=== PATIENT | male | born 1965 | race Caucasian/White ===

== ENCOUNTER 2020-02-26 11:16 | Outpatient (CLI) | payer MEDICARE, SELFPAY ==
[2020-02-26 12:17] LABS: Hemoglobin A1C 7.9 % (<5.7)
[2020-02-26 12:24] LABS: Cholesterol 185 mg/dL (0-200); HDL Direct 27 mg/dL; Triglycerides 217 mg/dL (<150)
[2020-02-26 12:35] LABS: LDL Cholesterol Direct 124 mg/dL
== END 2020-02-26 11:17 | disposition home or self-care (01) ==
LOC: ANHLAB 11:19
PROVIDERS: PCP Internal Medicine; Visit Provider Clinical Nurse Specialist
DX: E11.9 Type 2 diabetes mellitus without complications (principal); E78.5 Hyperlipidemia, unspecified
CPT/HCPCS: 36415; 80061; 83036

== ENCOUNTER 2020-09-18 13:24 | Emergency (ER) | payer MEDICARE, SELFPAY ==
--- NOTE | ~2020-09-18 | CT_ITS ---
EXAMINATION: CT lumbar spine wo con DATE: 09/18/2020 17:15 INDICATION: Low back pain. TECHNIQUE: Computed tomography (CT) of the lumbar spine was performed without intravenous contrast. A utomated exposure control and iterative reconstruction technique were employed. The dose-length produ ct was 1256.95 mGy-cm. COMPARISON: Lumbar spine radiographs 06/23/2014 FINDINGS: There are gallstones in the gallbladder, which is partially visualized. There is 5 degrees levocurvature of cervical spine. There are Schmorl's nodes at all levels. There are benign bone islan ds in right ilium. There is mildly decreased disc height at L3-L4. The following disc levels are spec ifically discussed: L1-L2: The disc is bulging. There is mild bilateral facet joint osteoarthritis. There is no neural fo raminal stenosis. There is mild central canal stenosis. L2-L3: The disc is bulging. There is mild bilateral facet joint osteoarthritis. There is mild bilater al neural foraminal stenosis. There is mild central canal stenosis. L3-L4: The disc is bulging. There is mild bilateral facet joint osteoarthritis. There is mild bilater al neural foraminal stenosis. There is mild central canal stenosis. L4-L5: The disc is bulging. There is mild bilateral facet joint osteoarthritis. There is mild bilater al neural foraminal stenosis. There is mild central canal stenosis. L5-S1: The disc is bulging. There is severe bilateral facet joint osteoarthritis. There is mild bilat eral neural foraminal stenosis. There is mild central canal stenosis. IMPRESSION: 1. Mild lumbar spondylosis. 2. Cholelithiasis. Reviewed, dictated and finalized at location A.
--- NOTE | ~2020-09-18 | US_ITS ---
US right upper quadrant DATE: 09/18/2020 17:17 INDICATION: Increased white blood cell count. Gallstones. TECHNIQUE: Real-time imaging a imaging of liver, pancreas, gallbladder COMPARISON: None FINDINGS: No hepatic space-occupying mass lesion is evident. Normal hepatopedal portal venous flow di rection. The pancreas is not optimally evaluated due to body habitus and bowel. There is some echogenic material at the posterior lumen of the gallbladder which may represent cholel ithiasis and/or sludge. No gallbladder wall thickening is evident. Negative sonographic Randall's sign . The common bile duct measures 3.9 mm, within normal limits. IMPRESSION: Suggestion of sludge and/or stones at the dependent aspect of the gallbladder; no gallbla dder wall thickening or bile duct dilatation Reviewed, dictated and finalized at Location A. Reviewed, dictated and finalized at location A. IMPRESSION: Suggestion of sludge and/or stones at the dependent aspect of the g allbladder; no gallbladder wall thickening or bile duct dilatation
[2020-09-18 13:40] VITALS: BP 99/66; PULSE 96; RESP 18; TEMP 36.3; O2SAT 96
[2020-09-18 13:46] LABS: Basophils Absolute Auto 0.1 K/mm3 (0.0-0.1); Basophils Percent Auto 0.5 % (0.2-1.2); Eosinophils Absolute Auto 0.1 K/mm3 (0-0.3); Eosinophils Percent Auto 0.5 % (0-4.4); Hematocrit 46.1 % (42.0-52.0); Hemoglobin 15.5 g/dL (14.0-18.0); Immature Granulocyte Absolute 0.04 K/mm3 (0.00-0.031); Immature Granulocyte Percent A 0.3 % (0-0.5); Lymphocytes Absolute Auto 1.93 K/mm3 (0.9-3.2); Lymphocytes Percent Auto 14.5 % (18.3-44.2); Mean Corpuscular HGB Conc 33.6 g/dl (32-36); Mean Corpuscular Hemoglobin 29.4 pg (26-34); Mean Corpuscular Volume 87.3 fl (80-100); Mean Platelet Volume 9.5 fl (7.4-10.4); Monocytes Absolute Auto 0.7 K/mm3 (0.1-0.6); Monocytes Percent Auto 5.2 % (2.6-8.5); Neutrophils Absolute Auto 10.5 K/mm3 (1.3-6.7); Platelet Count Result 201 k/mm3 (150-375); Red Blood Count 5.28 M/mm3 (4.6-6.20); Red Cell Distribution Width 13.5 % (11.5-14.5); White Blood Count 13.3 K/mm3 (4.5-10.0)
[2020-09-18 13:56] LABS: Alanine Aminotransferase 17 U/L (4-50); Albumin Level 4.4 g/dL (3.5-5.1); Alkaline Phosphatase 94 U/L (38-126); Anion Gap 9 mmol/L (8-16); Aspartate Amino Transferase 19 U/L (17-59); Bilirubin,Total 0.8 mg/dL (0.2-1.3); Blood Urea Nitrogen 15 mg/dL (9-20); Calcium 9.9 mg/dL (8.4-10.2); Carbon Dioxide 30 mmol/L (22-30); Chloride 102 mmol/L (98-107); Estimated CRCL calculation 86 ml/min; Estimated Glomerular Filt Rate > 60; Glucose 198 mg/dL (75-110); Lipase 42 U/L (23-300); Potassium 3.9 mmol/L (3.4-5.0); Sodium 141 mmol/L (137-145)
--- NOTE | 2020-09-18 14:23 | ED.ABDPAIN ---
HPI - Abdominal Pain General Chief Complaint: Abdominal Pain Stated Complaint: back pain, constipation Time Seen by Provider: 09/18/20 13:32 Source: patient and family Mode of arrival: ambulatory Limitations: no limitations History of Present Illness HPI narrative: 54-year-old male hx of previous CVA's Reports being constipated for 5 days and some diffuse abdominal pain Yesterday afternoon he was seen in the ED at [facility] His understanding was that they found gallstones which did not require any immediate intervention or treatment and he was discharged with Zofran and Dulcolax Today he remains constipated and it was suggested that he ought to be reevaluated in the ER here We do not have any [facility] paperwork to review and will have to request that Also still complains of LBP, no injury, no new weakness or numbness He has had falls but none of them particularly recently where he thinks he would have hurt himself Related Data Home Medications Medication Instructions Recorded Confirmed aspirin 325 mg tablet 325 mg PO DAILY 11/20/19 07/11/20 lisinopril 2.5 mg tablet 2.5 mg PO DAILY 02/27/20 07/11/20 clopidogrel 75 mg tablet 75 mg PO DAILY 07/11/20 07/11/20 Allergies Allergy/AdvReac Type Severity Reaction Status Date / Time Penicillins Allergy Unknown Chicken pox Verified 09/18/20 13:43 Review of Systems Review of Systems: All systems reviewed & are unremarkable except as noted in HPI and below Constitutional: Constitutional: Reports no additional constitutional complaints, Denies chills, Denies fever(s) and Denies headache(s) Eyes: Eyes: Reports no additional eye complaints and Denies change in vision ENT: Denies headache(s) and Denies sore throat Cardiovascular: Cardiovascular: Denies chest pain and Denies dyspnea Respiratory: Respiratory: Denies cough and Denies dyspnea Gastrointestinal: Gastrointestinal: Reports abdominal pain, Reports constipation, Denies diarrhea and Reports nausea Genitourinary: Genitourinary: Denies dysuria and Denies urinary frequency Musculoskeletal: Musculoskeletal: Reports back pain, Denies deformity, Denies arthralgias, Denies joint swelling and Denies numbness Integumentary/Breasts: Skin/Breast: Denies rash and Denies wounds Neurologic: Denies headache(s), Denies focal weakness, Denies numbness and Denies weakness Psychiatric: Psychiatric: Reports no additional psychiatric complaints [facility] Past Medical History Medical History (Updated 09/18/20 @ 18:57 by Arturo Moore MD) Elevated hemoglobin History of stroke Hypercholesterolemia Memory loss Polycythemia Type 2 diabetes mellitus without complication, without long-term current use of insulin Surgical History Surgical History (Updated 07/11/20 @ 11:57 by Radha Leung, [employer]IRTUAL ASSISTANT [employer]) History of loop recorder History of tonsillectomy and adenoidectomy Family History Family History (Updated 12/21/17 @ 13:51 by DOCTOR UNKNOWN) Father Diabetes mellitus Family history of transient ischemic attacks Family history of coronary artery disease Grandparent Diabetes mellitus Family history of glaucoma Social History Social History (Updated 07/11/20 @ 10:42 by Anjana Flores [facility]) Smoking packs per day: 0.5 Smoking cigarettes per day: 10.0 Smoking status: Current every day smoker Alcohol intake: current Exam Const: General: cooperative, no acute distress and alert HENMT: Head: normal to inspection, normocephalic and atraumatic Ears: external ears normal General nose exam: no epistaxis Eyes: Conjunctivae: conjunctivae normal EOM: EOMs intact bilaterally Neck: Neck: normal visual inspection, supple and no JVD Resp: Effort & Inspection: normal respiratory effort and not labored Auscultation: clear to auscultation bilaterally and other (BS =) Cardio: Rate: regular rate Rhythm: regular rhythm Heart sounds: no murmurs GI: Inspection: non-distended GI Palp: Yes Soft to palpa
[2020-09-18] MEDS: MAGNESIUM CITRATE 300 ML BTL PO (14:38)
[2020-09-18] MEDS: polyethylene glycoL 3350 17 GM POWD.PACK PO (15:33)
[2020-09-18] MEDS: LACTATED RINGERS 1,000 ML 999 ML IV CONT (15:37)
--- NOTE | 2020-09-18 15:44 | PC.NURSE ---
patient walked to bathroom to attempt urine sample. Patient unable to give sample at this time but will attempt again later.
[2020-09-18 17:28] VITALS: BP 113/86; PULSE 80; RESP 20; O2SAT 96
[2020-09-18 17:52] LABS: Add Urine Microscopic? YES; Appearance Urine Cloudy (Clear); Bilirubin Urine Negative (Negative); Blood Urine Negative (Negative); Color Urine Amber (Yellow); Glucose Urine UA Negative (Negative); Ketones Urine Negative (Negative); Leukocyte Esterase Ur Negative LEU/UL (Negative); Mucus Urine Heavy /lpf; Nitrate Urine Negative (Negative); Protein Urine 2+ mg/dL (Negative); RBC Urine 0-2 /hpf (0-2); Specific Grav Ur 1.027 (1.001-1.035); Squamous Epithelial Cell Urine Occasional /hpf (Few); WBC Urine 0-3 /hpf
[2020-09-18 18:04] LABS: CRP < 0.5 mg/dL (<1.0)
[2020-09-18 18:17] VITALS: BP 96/69; PULSE 75; RESP 27; O2SAT 100
[2020-09-18 19:26] VITALS: BP 108/74; PULSE 75; RESP 16; TEMP 36.6; O2SAT 100
[2020-09-18 19:40] LABS: Erythrocyte Sedimentation Rate 10 mm/hr (0-20)
== END 2020-09-18 19:26 | disposition home or self-care (01) ==
PROVIDERS: General Practice; Emergency Provider Emergency Medicine; PCP Internal Medicine
DX: K59.00 Constipation, unspecified (principal); M54.5 Low back pain; E78.00 Pure hypercholesterolemia, unspecified; E11.9 Type 2 diabetes mellitus without complications; Z79.82 Long term (current) use of aspirin; Z86.73 Personal history of transient ischemic attack (TIA), and cerebral infarction without residual deficits; F17.210 Nicotine dependence, cigarettes, uncomplicated; M47.816 Spondylosis without myelopathy or radiculopathy, lumbar region; K80.20 Calculus of gallbladder without cholecystitis without obstruction; Z79.84 Long term (current) use of oral hypoglycemic drugs
CPT/HCPCS: 36415; 51701; 72131; 76705; 80053; 81001; 83690; 85025; 85652; 86140; 96360; 99284; A9270; J7120

== ENCOUNTER 2020-09-23 07:27 | Outpatient (CLI) | payer MEDICARE, SELFPAY ==
--- NOTE | ~2020-09-23 | NM_ITS ---
EXAMINATION: NM hepatobiliary wo pharm DATE: 09/23/2020 11:25 INDICATION: Other specified diseases of gallbladder. COMPARISON: Ultrasound 09/18/2020 TECHNIQUE: 5 mCi Tc-99m mebrofenin (Choletec) was administered intravenously. Scintigraphic images o f the abdomen were obtained for one hour. Then, the patient drank 8 oz Ensure, and imaging was contin ued for 60 minutes. FINDINGS: There is normal clearance of radiotracer from the blood pool. There is homogeneous tracer u ptake by the liver. Activity progresses to the bowel and gallbladder. Gallbladder ejection fraction (GBEF) was 33%. Note that with this technique, normal GBEF >= 33%. IMPRESSION: 1. Normal hepatobiliary scintigraphy. Reviewed, dictated and finalized at location B.
== END 2020-09-23 07:28 | disposition home or self-care (01) ==
PROVIDERS: PCP Internal Medicine; Visit Provider Clinical Nurse Specialist
DX: K82.8 Other specified diseases of gallbladder (principal)
CPT/HCPCS: 78226; A9537

== ENCOUNTER 2021-10-02 18:12 | Emergency (ER) | payer MEDICARE, SELFPAY ==
[2021-10-02 18:28] VITALS: BP 118/69; PULSE 82; RESP 16; TEMP 36.2; O2SAT 98
--- NOTE | 2021-10-02 20:33 | ED.EXTPRO ---
HPI - Extremity Problem General Chief complaint: Extremity Problem,Nontraumatic Stated complaint: Pain in right leg through hip Time Seen by Provider: 10/02/21 19:38 Source: patient Mode of arrival: ambulatory History of Present Illness HPI Narrative: 55-year-old male with history of blood clot and stroke x5 presents today with complaints of right lower extremity pain. Patient states the pain started on Tuesday in his foot and now currently radiates up his leg. Pain is worse with certain movements and ambulation. Patient states yesterday and today he was walking and his leg gave out on him and he fell. Patient denies any other injuries. 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 Patient denies urinary incontinence, bowel incontinence, saddle paresthesia, or weakness to legs. Patient denies any recent trips, swelling to the right leg. Related Data Home Medications Medication Instructions Recorded Confirmed aspirin 81 mg tablet,delayed 81 mg PO DAILY 10/07/20 01/21/21 release atorvastatin 10/02/21 glimepiride mg 10/02/21 lisinopril 10/02/21 metformin mg 10/02/21 sertraline mg 10/02/21 Allergies Allergy/AdvReac Type Severity Reaction Status Date / Time Penicillins Allergy Unknown Chicken pox Verified 05/12/21 09:26 Review of Systems Review of Systems: CONSTITUTIONAL: Denies fever, chills, or sweats. EYES: Denies visual changes, redness, or discharge. ENT: Denies rhinorrhea, congestion, sore throat, or otalgia. CARDIOVASCULAR: Denies chest pain, palpitations, or edema. RESPIRATORY: Denies cough or dyspnea. GASTROINTESTINAL: Denies abdominal pain, nausea, vomiting, or diarrhea. GENITOURINARY: Denies dysuria or hematuria. SKIN: Denies rash or itching. MUSCULOSKELETAL: Right leg pain. Denies back pain, joint pain, or myalgia. NEUROLOGIC: Denies headache, numbness, dizziness, or weakness. PSYCHIATRIC: Denies anxiety or depression. PENDING SALE TO [facility] Past Medical History Medical History Elevated hemoglobin History of stroke Hypercholesterolemia Memory loss Polycythemia Type 2 diabetes mellitus without complication, without long-term current use of insulin Surgical History Surgical History History of loop recorder History of tonsillectomy and adenoidectomy Family History Family History Father Diabetes mellitus Family history of transient ischemic attacks Family history of coronary artery disease Grandparent Diabetes mellitus Family history of glaucoma Social History Social History Smoking packs per day: 1 Smoking cigarettes per day: 20.0 Smoking status: Current every day smoker Alcohol intake: current Alcohol use details: rarely Exam Narrative: GENERAL: Well-appearing, well-nourished, and in no acute distress. HEAD: Normocephalic, atraumatic. EYES: PERRLA and EOMI. ENT: Nares clear, no rhinorrhea or epistaxis. Mucous membranes moist. Oropharynx without tonsillar hypertrophy exudate or other lesions. Bilateral TMs pearly morel nonbulging NECK: Supple. No adenopathy or masses. No carotid bruits or JVD CHEST: Clear to auscultation. No respiratory distress. No wheezes rales or rhonchi HEART: Regular rate and rhythm. No murmur heard. Normal peripheral pulses. ABDOMEN: Soft, nontender, nondistended, normal active bowel sounds. EXTREMITIES: Straight leg raise positive right leg. Pain with palpation to right buttock. Normal range of motion. No edema. SKIN: Warm, dry, no rash. NEURO: No focal deficits. Alert and oriented x3. PSYCH: Normal mood and affect. Course Vital Signs Vital signs: Vital Signs Temperature 36.2 C L 10/02/21 18:28 Pulse Rate 82 10/02/21 18:28 Respiratory Rate 16 10/02/21 18:28
[2021-10-02] MEDS: KETOROLAC 30 MG/ML VIAL (*BKC) IM (20:44)
[2021-10-02] MEDS: ENOXAPARIN 80 MG/0.8 ML SYRINGE SUB-Q (20:44)
== END 2021-10-02 20:55 | disposition home or self-care (01) ==
PROVIDERS: Emergency Provider Nurse Practitioner Family; PCP Internal Medicine
DX: M79.604 Pain in right leg (principal); E78.00 Pure hypercholesterolemia, unspecified; D75.1 Secondary polycythemia; E11.9 Type 2 diabetes mellitus without complications; Z86.73 Personal history of transient ischemic attack (TIA), and cerebral infarction without residual deficits; F17.210 Nicotine dependence, cigarettes, uncomplicated; Z79.82 Long term (current) use of aspirin; Z79.84 Long term (current) use of oral hypoglycemic drugs
CPT/HCPCS: 96372; 99284; J1650; J1885

== ENCOUNTER 2021-10-03 07:08 | Outpatient (CLI) | payer MEDICARE, SELFPAY ==
--- NOTE | ~2021-10-03 | US_ITS ---
US venous doppler LE RT DATE: 10/03/2021 07:38 INDICATION: Right calf pain TECHNIQUE: Real-time and color flow imaging and Doppler analysis of the veins of the right lower extr emity COMPARISON: None FINDINGS: Right greater saphenous vein is patent. The spontaneous and phasic flow and normal augmenta tion and color flow signal and normal compression of the veins of the right leg. IMPRESSION: No evidence of deep venous thrombosis of the right leg Reviewed, dictated and finalized at Location A. Reviewed, dictated and finalized at location A.
== END 2021-10-03 07:09 | disposition home or self-care (01) ==
LOC: ANHIMG 07:14
PROVIDERS: PCP Internal Medicine; Visit Provider Internal Medicine
DX: M79.661 Pain in right lower leg (principal)
CPT/HCPCS: 93971

== ENCOUNTER 2024-06-13 07:58 | Outpatient (CLI) | payer MEDICARE, SELFPAY ==
[2024-06-13 12:39] LABS: Basophils Absolute Auto 0.1 K/mm3 (0.0-0.1); Basophils Percent Auto 1.2 % (0.2-1.2); Eosinophils Absolute Auto 0.2 K/mm3 (0-0.3); Eosinophils Percent Auto 2.2 % (0-4.4); Hematocrit 48.9 % (42.0-52.0); Hemoglobin 15.4 g/dL (14.0-18.0); Immature Granulocyte Absolute 0.03 K/mm3 (0.00-0.031); Immature Granulocyte Percent A 0.4 % (0-0.5); Lymphocytes Absolute Auto 1.68 K/mm3 (0.9-3.2); Lymphocytes Percent Auto 21.7 % (18.3-44.2); Mean Corpuscular HGB Conc 31.5 g/dl (32-36); Mean Corpuscular Hemoglobin 28.8 pg (26-34); Mean Corpuscular Volume 91.6 fl (80-100); Mean Platelet Volume 9.5 fl (7.4-10.4); Monocytes Absolute Auto 0.4 K/mm3 (0.1-0.6); Monocytes Percent Auto 5.4 % (2.6-8.5); Neutrophils Absolute Auto 5.4 K/mm3 (1.3-6.7); Neutrophils Percent Auto 69.1 % (45.5-73.1); Platelet Count Result 175 k/mm3 (150-375); Red Blood Count 5.34 M/mm3 (4.6-6.20); Red Cell Distribution Width 13.8 % (11.5-14.5); White Blood Count 7.7 K/mm3 (4.5-10.0)
[2024-06-13 13:18] LABS: Creatinine Urine 206.9 mg/dL
[2024-06-13 13:22] LABS: Alanine Aminotransferase 32 U/L (6-50); Albumin Level 4.2 g/dL (3.5-5.1); Alkaline Phosphatase 121 U/L (38-126); Anion Gap 6 mmol/L (4-12); Aspartate Amino Transferase 35 U/L (17-59); Bilirubin,Total 0.7 mg/dL (0.2-1.3); Blood Urea Nitrogen 23 mg/dL (9-20); Calcium 9.4 mg/dL (8.4-10.2); Carbon Dioxide 29 mmol/L (22-30); Chloride 103 mmol/L (98-107); Cholesterol 177 mg/dL (0-200); Estimated Glomerular Filt Rate > 60; Glucose 136 mg/dL (65-110); HDL Direct 33 mg/dL; Potassium 4.4 mmol/L (3.4-5.0); Sodium 138 mmol/L (137-145); Triglycerides 87 mg/dL (<150)
[2024-06-13 13:23] LABS: MALB Creatinine Ratio 14.6 mg/g (0-30); Microalbumin Urine Random 30.2 mg/L (0-16.7)
[2024-06-13 13:35] LABS: LDL Cholesterol Direct 121 mg/dL
[2024-06-13 13:55] LABS: Prostate Specific Antigen 0.7 ng/mL (< OR = 4.0)
[2024-06-13 21:58] LABS: Hemoglobin A1C 7.3 % (<5.7)
== END 2024-06-13 07:59 | disposition home or self-care (01) ==
LOC: ANHGOSHLAB 08:00
PROVIDERS: PCP Internal Medicine; Visit Provider Internal Medicine
DX: E78.5 Hyperlipidemia, unspecified (principal)
CPT/HCPCS: 36415; 80053; 80061; 82043; 82172; 82607; 82746; 83036; 84153; 84443; 85025; G0103

== ENCOUNTER 2024-08-16 08:47 | Outpatient (CLI) | payer MEDICARE, SELFPAY | END 2024-08-16 08:48 | disposition home or self-care (01) | LOC: GOSHIMG 08:47 | PROVIDERS: PCP Internal Medicine; Visit Provider Internal Medicine | DX: M25.562 Pain in left knee (principal) | CPT/HCPCS: 73564 ==

== ENCOUNTER 2024-11-27 09:37 | Outpatient (CLI) | payer MEDICARE, SELFPAY ==
[2024-11-27 13:09] LABS: Basophils Absolute Auto 0.1 K/mm3 (0.0-0.1); Basophils Percent Auto 0.8 % (0.2-1.2); Eosinophils Absolute Auto 0.1 K/mm3 (0-0.3); Eosinophils Percent Auto 1.6 % (0-4.4); Hematocrit 46.4 % (42.0-52.0); Hemoglobin 14.7 g/dL (14.0-18.0); Immature Granulocyte Absolute 0.04 K/mm3 (0.00-0.031); Immature Granulocyte Percent A 0.5 % (0-0.5); Lymphocytes Percent Auto 18.9 % (18.3-44.2); Mean Corpuscular HGB Conc 31.7 g/dl (32-36); Mean Corpuscular Hemoglobin 28.3 pg (26-34); Mean Corpuscular Volume 89.4 fl (80-100); Mean Platelet Volume 9.5 fl (7.4-10.4); Monocytes Absolute Auto 0.4 K/mm3 (0.1-0.6); Monocytes Percent Auto 5.3 % (2.6-8.5); Neutrophils Absolute Auto 5.8 K/mm3 (1.3-6.7); Neutrophils Percent Auto 72.9 % (45.5-73.1); Platelet Count Result 163 k/mm3 (150-375); Red Blood Count 5.19 M/mm3 (4.6-6.20); Red Cell Distribution Width 13.6 % (11.5-14.5); White Blood Count 7.9 K/mm3 (4.5-10.0)
[2024-11-27 13:18] LABS: Hemoglobin A1C 6.6 % (<5.7)
[2024-11-27 13:41] LABS: Alanine Aminotransferase 27 U/L (6-50); Albumin Level 4.1 g/dL (3.5-5.1); Alkaline Phosphatase 95 U/L (38-126); Anion Gap 8 mmol/L (4-12); Aspartate Amino Transferase 52 U/L (17-59); Bilirubin,Total 0.6 mg/dL (0.2-1.3); Blood Urea Nitrogen 23 mg/dL (9-20); Calcium 9.6 mg/dL (8.4-10.2); Carbon Dioxide 28 mmol/L (22-30); Chloride 103 mmol/L (98-107); Cholesterol 95 mg/dL (0-200); Estimated Glomerular Filt Rate > 60; Glucose 94 mg/dL (65-110); HDL Direct 29 mg/dL; Sodium 139 mmol/L (137-145); Triglycerides 105 mg/dL (<150)
[2024-11-27 13:58] LABS: LDL Cholesterol Direct 42 mg/dL
[2024-12-01 14:29] LABS: Apolipoprotein B. 59 mg/dL
== END 2024-11-27 09:38 | disposition home or self-care (01) ==
LOC: ANHGOSHLAB 09:38
PROVIDERS: PCP Internal Medicine; Visit Provider Internal Medicine
DX: E11.65 Type 2 diabetes mellitus with hyperglycemia (principal); E78.00 Pure hypercholesterolemia, unspecified; G40.909 Epilepsy, unspecified, not intractable, without status epilepticus; Z86.73 Personal history of transient ischemic attack (TIA), and cerebral infarction without residual deficits
CPT/HCPCS: 36415; 80053; 80061; 82172; 83036; 85025

== ENCOUNTER 2025-04-15 18:20 | Emergency (ER) | payer MEDICARE, SELFPAY ==
--- NOTE | ~2025-04-15 | CT_ITS ---
CT brain wo con HISTORY:difficulty swallowing COMPARISON: None. TECHNIQUE: Axial images were obtained of the head without intravenous contrast. FINDINGS: No acute intracranial hemorrhage, mass effect or midline shift. No extra-axial fluid collections. Chronic encephalomalacia changes within the left temporal lobe and bilateral occipital lobe reflective of remote infarct is noted.Visualized paranasal sinuses and mastoid air cells are clear. IMPRESSION: No acute intracranial hemorrhage or extra axial fluid collections. Chronic encephalomalacia changes within the left temporal lobe and bilateral occipital lobes reflective of remote infarct. All CT scans at this facility are performed using low dose modulation techniques as appropriate to perform exam including the following: automated exposure control; use of iterative reconstruction technique; adjustment of the mA and/or kV according to patient size (this includes techniques or standardized protocols for targeted exams where dose is matched to indication/reason for exam). Reviewed, dictated and finalized at location S. ENTARY EDUCATOR IMPRESSION: No acute intracranial hemorrhage or extra axial fluid collections. Chronic encephalomalacia changes within the left temporal lobe and bilateral oc cipital lobes reflective of remote infarct. All CT scans at this facility are performed using low dose modulation techniqu es as appropriate to perform exam including the following: automated exposure c ontrol; use of iterative reconstruction technique; adjustment of the mA and/or kV according to patient size (this includes techniques or standardized protocol s for targeted exams where dose is matched to indication/reason for exam).
--- NOTE | ~2025-04-15 | XR_ITS ---
XR chest 2V HOSTORY: dysphagia COMPARISON:[ None] FINDINGS: Frontal and lateral views of the chest were obtained. The lungs are clear. The heart size is normal in size. Pulmonary vasculature is unremarkable. Osseous structures are intact. IMPRESSION: No acute lung findings.] [ ] Reviewed, dictated and finalized at location S. S SCIENCE ENGINEER
[2025-04-15 18:21] VITALS: BP 135/80; PULSE 90; RESP 17; TEMP 36.9; O2SAT 100
--- OUTSIDE RECORDS SUMMARY | 2025-04-15 18:22 | XMS_ITS | Encounter Summary ---
Author Organization [facility] Address [address] [place] [address] Care Team Providers Care Tobacco Sweeper Name Role Phone Arianna Nichole MD Unavailable Bruce Mason DO Primary Care Provider [phone] Encounter Details Date Type Department Care Team (Late st Contact Info) Description 09/12/2024 Telephone [facility] - Dermatology [address] [place] [address], [facility] [place] [address] Baldev Feliciano MD [address] [place] [address] [address] [place] [address] Social History Tobacco Use Types Packs/Day Years Used Date Smoking Tobacco: Every Day Cigarettes 2 45.5 Started: 10/23/1979 Cigars Started: 2014 Smokeless Tobacco: Never Alcohol Use Standard Drinks/Week Comments Not Currently 0 (1 standard drink = 0.6 oz pur e alcohol) PHQ-2 Answer Date Recorded Patient Health Questionnaire-2 Score 0 08/03/2023 Sex and Gender Information Value Date Recorded Sex Assigned at Not on file Legal Sex Male 5:42 PM OLIVE GROWER Gender Identity Not on file Sexual Orientation Not on file documented as of this encounter Functional Status * Is person deaf or have serious hearing difficulty? Answer Date of Assessment Author No 06/18/2020 4:38 PM OLIVE GROWER Sa terri Silva, HEADER SETUP OPERATOR-NOVELTY BALLOON ASSEMBLER AND PACKER * Is person blind or have serious difficulty seeing? Answer Date of Assessment Author No 06/18/2020 4:38 PM OLIVE GROWER Shira, Sa mantha, HEADER SETUP OPERATOR-NOVELTY BALLOON ASSEMBLER AND PACKER * Does person have serious difficulty walking/climbing stairs? Answer Date of Assessment Author No 06/18/2020 4:38 PM OLIVE GROWER Shira, Sa mantha, HEADER SETUP OPERATOR-NOVELTY BALLOON ASSEMBLER AND PACKER * Does person have difficulty dressing/bathing? Answer Date of Assessment Author No 06/18/2020 4:38 PM OLIVE GROWER Shira, Sa mantha, HEADER SETUP OPERATOR-NOVELTY BALLOON ASSEMBLER AND PACKER * Does person have difficulty doing errands alone? Answer Date of Assessment Author Yes 06/18/2020 4:38 PM OLIVE GROWER Shira, Sa mantha, HEADER SETUP OPERATOR-NOVELTY BALLOON ASSEMBLER AND PACKER documented as of this encounter Mental Status * Does person have difficulty concentrating/remembering/making decisions? Answer Entry Date Author Yes 06/18/2020 4:38 PM OLIVE GROWER Shira, Sa mantha, HEADER SETUP OPERATOR-NOVELTY BALLOON ASSEMBLER AND PACKER documented in this encounter Progress Notes * Mirna Neves - 09/20/2024 1:33 PM CDT Medication Prior Authorization: Medication: Otezla starter pack and Otezla 30mg tablet Status: Approved 09/12/24 through 03/14/25 Submitted via: Cover My Meds (Nation: [id number]) Insurance: [employer] (p: [phone]) (f: [phone]) Case/Reference number: ID: [id number] RX Card Billing Info: BIN: [id number] PCN: [id number] GROUP: COS ID: [id number] PA approval notice uploaded to media tab. Routed approval details to [facility] and will have rehabilitation case coordinator reach out to patient as well. Mirna Neves- Pharmacy Cigar Sorter (Dermatology) documented in this encounter Miscellaneous Notes * Telephone Encounter - Carla Panda - 09/17/2024 1:17 PM CDT Fax provider form and insurance cardsd to [employer] I do not have a copy of the approval of the medication to fax with the form. Called brother advised will send patient signature form thru pt katehart advised him to please fax form once signed to the fax number on the bottom. Carla Panda * Telephone Encounter - Mirna Neves - 09/12/2024 12:23 PM CDT PARISH submitted fornew start Otezlastarter pack and 30mg tablet for loading dose of (starter: utd) andmaintenance dose of (30mg bid) via [facility] Part Dand currently waiting on decision. Nation: [id number] Provider:[phone] (Braden) Mirna Neves Transportation Aid - Pharmacy Cigar Sorter documented in this encounter Plan of Treatment Upcoming Encounters Date Type Department Care Team (Late st Contact Info) Description 04/25/2025 1:00 AM OLIVE GROWER Clinical Support [facility] - Cardiology [address] [address] 04/30/2025 8:20 AM OLIVE GROWER Appointment [facility] CAT SCAN [address] [place] [address] Tereza Gooden MD [facility] 2L DIV OF PULMONARY/[place] [address] 05/31/2025 1:00 AM OLIVE GROWER Clinical Support [facility] - Cardiology [address] [address] 06/28/2025 10:30 AM OLIVE GROWER Office Visit [facility] - Pulmonology [address] [facility], [place] [address] Tereza Gooden MD [facility] 2L DIV OF PULMONARY/[place] [address] 08/01/2025 11:30 AM OLIVE GROWER Office Visit [facility] - General Dermatology [address], [facility] [address] [place] [address] Rich Mehta PA-C [address] [facility] [address] [place] [address] 09/05/2025 9:00 AM CDT Office Visit [facility] - Neurology [address] [facility] [place] [address] Brisa Blanchard PA-C [address] [place] [address] documented as of this encounter Visit Diagnoses Not on filedocumented in this encounter Care Teams Tobacco Sweeper Relationship Specialty Start Date End Date Bruce Mason DO [address] [place] [phone] PCP - General Internal Medicine 06/27/24 Arianna Nichole MD [address] [place] [address] DIV OF [place] [id number] Physician Internal Medicine 04/10/24 documented as of this encounter
--- OUTSIDE RECORDS SUMMARY | 2025-04-15 18:22 | XMS_ITS | Clinical Summary ---
Author Organization [facility] Address [address] [place] [address] Care Team Providers Care Raw Material Planner Name Role Phone JovitaabdulkadirBruce middleton DO Primary Care Provider [phone] Allergies Active Allergy Reactions Criticality Noted Date Comments Penicillins Rash Low 03/27/2018 Medications metFORMIN 1000 MG tablet Take 1,000 mg by mouth 2 (two) times daily with meals. Active SITagliptin 25 MG Tab Take 4 tablets by mouth daily. Active atorvastatin 40 MG tablet Take 40 mg by mouth daily. Active aspirin EC (ASPIRIN) 81 MG EC tablet Take 81 mg by mouth daily. Active Family History Medical History Relation Comments Diabetes Father type 2 Stroke Father Diabetes Mother type 2 gout Mother Relation Status Comments Father Mother Social History Tobacco Use Types Packs/Day Years Used Date Smoking Tobacco: Every Day Cigarettes Smokeless Tobacco: Never Alcohol Use Standard Drinks/Week Comments Yes 0 (1 standard drink = 0.6 oz pur e alcohol) 4-5 drinks a year Sex and Gender Information Value Date Recorded Sex Assigned at Not on file Legal Sex Male 1:09 PM CDT Gender Identity Not on file Sexual Orientation Not on file Last Filed Vital Signs Vital Sign Reading Time Taken Comments Blood Pressure 111/78 03/29/2018 2:15 PM CDT Pulse 70 03/29/2018 2:15 PM CDT Temperature 36.1 C (97 F) 03/29/2018 1:55 PM CDT Respiratory Rate 14 03/29/2018 2:15 PM CDT Oxygen Saturation 95% 03/29/2018 2:15 PM CDT Inhaled Oxygen Concentration - - Weight 113.4 kg (250 lb) 03/27/2018 2:00 PM CDT Height 190.5 cm (6' 3) 03/27/2018 2:00 PM CDT Body Mass Index 31.25 03/27/2018 2:00 PM CDT Plan of Treatment Health Maintenance Due Date Last Done Comments Colorectal Cancer Screening Colonoscopy (10 Years) 1966 Annual Physical 1969 Hepatitis C 1984 DTaP, Tdap and Td Vaccines ( 1 - Tdap) 1985 Hepatitis B Vaccines (1 of 3 - 19+ 3-dose series) 1985 Pneumococcal Vaccine: 50+ Ye ars (1 of 2 - PCV) 1985 Zoster Vaccines (1 of 2) 2016 COVID-19 Vaccine ( - 2024-2 6 season) 2025 Influenza Adult (#1) 2025 Hepatitis A Vaccines Aged Out No long er eligible based on patient's age to complete this topic Meningococcal B Vaccine Aged Out No l onger eligible based on patient's age to complete this topic Meningococcal Vaccine Aged Out No annika kiersten eligible based on patient's age to complete this topic RSV Immunizations Under 20 Months Aged Out No longer eligible based on patient's age to complete this topic Insurance Care Teams Raw Material Planner Relationship Specialty Start Date End Date Bruce Mason DO [address] [place] [address] PCP - General INTERNAL MEDICINE 03/29/18
--- OUTSIDE RECORDS SUMMARY | 2025-04-15 18:22 | XMS_ITS | Encounter Summary ---
Author Organization [facility] Address [address] [place] [address] Care Team Providers Care Associate Professor Of Medicine Name Role Phone Arianna Nichole MD Unavailable Bruce Mason DO Primary Care Provider [phone] Reason for Visit * Reason Onset Date Comments Reschedule Appointment 07/27/2024 Encounter Details Date Type Department Care Team (Late st Contact Info) Description 07/27/2024 Telephone [facility] - Pulmonology [address] [facility], [place] [address] Tereza Gooden MD [address] [place] [address] DIV OF PULMONARY/[place] [address] Reschedule Appointment Social History Tobacco Use Types Packs/Day Years [...] on file Legal Sex Male 5:42 PM SPOT SPRAYER Gender Identity Not on file Sexual Orientation Not on file documented as of this encounter Functional Status * Is person deaf or have serious hearing difficulty? Answer Date of Assessment Author No 06/18/2020 4:38 PM SPOT SPRAYER Shira, Sa mantha, FRIT BURNER-DISABILITY SPECIALIST * Is person blind or have serious difficulty seeing? Answer Date of Assessment Author No 06/18/2020 4:38 PM SPOT SPRAYER Shira, Sa mantha, FRIT BURNER-DISABILITY SPECIALIST * Does person have serious difficulty walking/climbing stairs? Answer Date of Assessment Author No 06/18/2020 4:38 PM SPOT SPRAYER Shira Sa mantha, FRIT BURNER-DISABILITY SPECIALIST * Does person have difficulty dressing/bathing? Answer Date of Assessment Author No 06/18/2020 4:38 PM SPOT SPRAYER Shira, Sa mantha, FRIT BURNER-DISABILITY SPECIALIST * Does person have difficulty doing errands alone? Answer Date of Assessment Author Yes 06/18/2020 4:38 PM SPOT SPRAYER Shira Sa mantkameron, FRIT BURNER-DISABILITY SPECIALIST documented as of this encounter Mental Status * Does person have difficulty concentrating/remembering/making decisions? Answer Entry Date Author Yes 06/18/2020 4:38 PM SPOT SPRAYER Shira Sa mantkameron, FRIT BURNER-DISABILITY SPECIALIST documented in this encounter Miscellaneous Notes * Telephone Encounter - Zoya Munoz - 07/27/2024 2:54 PM CST Reason for call: Patient has an 6 month f.u appointment on 09/14, requesting if he could reschedule to 09/06 or 09/07 due to having to travel 4 hours for his appointment and he will be in town both those dates for other scheduled appointments Patient Call Back number: [phone] SPRAYER documented in this encounter Plan of Treatment Upcoming Encounters Date Type Department Care Team (Late st Contact Info) Description 04/25/2025 1:00 AM SPOT SPRAYER Clinical Support [facility] - Cardiology [address] [facility], [facility] [address] [place] [address] 04/30/2025 8:20 AM SPOT SPRAYER Appointment [facility] [address] [place] [address] Tereza Gooden MD [address] OF PULMONARY/[place] [phone] 05/31/2025 1:00 AM SPOT SPRAYER Clinical Support [facility] - Cardiology [address] [facility], [facility] [address] [place] [address] 06/28/2025 10:30 AM SPOT SPRAYER Office Visit [facility] - Pulmonology [address] [facility], [place] [address] Tereza Gooden MD [address] [place] [address] 2[address] DIV OF PULMONARY/[place] [phone] 08/01/2025 11:30 AM SPOT SPRAYER Office Visit [facility] - General Dermatology [address], [facility] [address] [place] [phone] Rich Mehta PAIvan [address] [facility] [address] [place] [phone] 09/05/2025 9:00 AM CDT Office Visit [facility] - Neurology [address] [facility], [place] [phone] Brisa Blanchard PA-C [address] [place] [address] documented as of this encounter Visit Diagnoses Not on filedocumented in this encounter Care Teams Associate Professor Of Medicine Relationship Specialty Start Date End Date Bruce Mason DO [address] [place] [phone] PCP - General Internal Medicine 06/27/24 Arianna Nichole MD [address] [place] [address] 2L DIV [place] [address] Physician Internal Medicine 04/10/24 documented as of this encounter
--- NOTE | 2025-04-15 18:24 | ECG_ITS ---
Test Date: 2025-04-15 21:37:15 Measurements Intervals [place] Rate: 72 P: 17 MN: 281 QRS: 2 QRSD: 100 T: 47 QT: 418 QTc: 458 Interpretive Statements SINUS RHYTHM WITH FIRST DEGREE AV BLOCK NONSPECIFIC T-WAVE ABNORMALITY No previous ECG available for comparison Electronically Signed On 04-16-2025 17:33:59 MUD CAR WORKER by Jamey Prince M.D.
--- NOTE | 2025-04-15 18:25 | ED.GENADULT ---
HPI - General Adult General Chief complaint: Unspecified <Inna Perez PA-C - Last Filed: 04/16/25 02:56> Stated complaint: difficulty swallowing <Inna Perez PA-C - Last Filed: 04/16/25 02:56> Time Seen by Provider: 04/15/25 18:25 <Inna Perez PA-C - Last Filed: 04/16/25 02:56> Focused HPI: This is a 59 year old male that presents to the ER for difficulty swallowing. Ongoing over the last week. Reports history of multiple strokes. Was prompted to be seen in the ER by his PCP. GENERAL: Well-appearing, well-nourished, and in no acute distress. HEAD: Normocephalic, atraumatic. CHEST: No respiratory distress. HEART: Regular rate NEURO: ?Alert and oriented x3. Patient screened in triage and initial orders placed.? ?Additional care and disposition to be based upon?diagnostic testing and treatment. <Inna Perez PA-C - Last Filed: 04/16/25 02:56> History of Present Illness HPI narrative: Agree with HPI <Mango Sandoval DO - Last Filed: 04/16/25 04:02> Related Data Home medications: Home Medications ?Medication ?Instructions ?Recorded ?Confirmed ?Last Taken ?Type apremilast 30 mg tablet (Otezla) 30 mg PO QAM AND QPM 08/16/24 11/29/24 Unknown History clobetasol 0.05 % topical cream 1 applic topical BID 11/29/24 11/29/24 Unknown History levetiracetam 500 mg tablet 500 mg PO Q12H 11/29/24 11/29/24 Unknown History <TY Alvarado Last Filed: 04/16/25 02:56> Allergies/adverse reactions: Allergies Allergy/AdvReac Type Severity Reaction Status Date / Time Penicillins Allergy Unknown Chicken pox Verified 11/29/24 08:07 <TY Alvarado Last Filed: 04/16/25 02:56> PMFSH Past Medical History Medical History: Medical History Seizure disorder Diabetes mellitus with hyperglycemia Seizure Erectile dysfunction Slurred speech Excessive daytime sleepiness Chain smoker Lumbar radiculopathy, right Cholelithiasis Sludge in gallbladder Depression History of multiple cerebrovascular accidents (CVAs) x6 Hyperlipidemia Elevated hemoglobin Polycythemia Memory loss Hypercholesterolemia Type 2 diabetes mellitus without complication, without long-term current use of insulin <Inna Perez PA-C - Last Filed: 04/16/25 02:56> Surgical History Surgical History: Surgical History History of loop recorder History of tonsillectomy and adenoidectomy <Inna Perez PA-C - Last Filed: 04/16/25 02:56> Family History Family History: Family History Father Diabetes mellitus Family history of transient ischemic attacks Family history of coronary artery disease Grandparent Diabetes mellitus Family history of glaucoma <Inna Perez PA-C - Last Filed: 04/16/25 02:56> Social History Social History: Social History Smoking packs per day: 1.25 Smoking cigarettes per day: 25.0 Years smoked: 42 Smoking pack-years: 52.50 Tobacco type: cigarettes Additional smoking assessment comments: Started smoking at age 15. Alcohol intake: current Alcohol use details: rarely Substance use: never Do You Feel Safe in your Home?: Yes Lack of Transportation: YES Lack of Food: Sometimes True Current Housing: Decline to Answer Concerned About Future Housing: No Difficulty Paying Gas/Electric Bills: YES Difficulty Paying for Meds: No Currently Unemployed: No Education: High School Diploma/GED Difficulty w/ Childcare or Family Care: No Living arrangements: with family <Inna Perez PA-C - Last Filed: 04/16/25 02:56> Course Vital Signs Vital signs: Vital Signs Temperature 98.5 F 04/15/25 18:21 Pulse Rate 90 04/15/25 18:21 Respiratory Rate 17 04/15/25 18:21 Blood Pressure 135/80 04/15/25 18:21 Pulse Oximetry 100 04/15/25 18:21 Oxygen Delivery Room Air 04/15/25 18:21 Temperature 98.5 F 04/15/25 18:21 Pulse Rate 68 04/15/25 22:12 Respiratory Rate 16 04/15/25 22:12 Blood Pressure 114/72 04/15/25 22:12 Pulse Oximetry 99 04/15/25 22:12 Oxygen Delivery Room Air 04/15/25 18:21 <Inna Perez PA-C - Last Filed: 04/16/25 02:56> Vital Signs Temperature 98.5 F 04/15/25 18:21 Pulse Rate 90 04/15/25 18:21 Respiratory Rate 17 04/15/25 18:21 Blood Pressure 135/80 04/15/25 18:21 Pulse Oximetry 100 04/15/25 18:21 Oxygen Delivery Room Air 04/15/25 18:21 Temperature 98.5 F 04/15/25 18:21 Pulse Rate 68 04/15/25 22:12 Respiratory Rate 16 04/15/25 22:12 Blood Pressure 114/72 04/15/25 22:12 Pulse Oximetry 99 04/15/25 22:12 Oxygen Delivery Room Air 04/15/25 18:21 <Mango Sandoval DO - Last Filed: 04/16/25 04:02> Medical Decision Making MDM Narrative Medical decision making narrative: 59-year-old male Presenting for difficulty swallowing. On initial evaluation patient was in no acute distress afebrile, hemodynamic stable. Differentials include but are not limited to: CVA, electrolyte abnormality, esophagitis Notable exam findings: Oropharynx clear. Chest nontender. Notable lab findings: CBC without significant abnormalities. CMP without significant abnormality. Troponin within normal limits. Notable imaging findings: Chest x-ray showed no acute process. CT head showed no acute process. Suspect the patient does have dysphagia related to his prior CVAs. He is able to tolerate liquids at this time. No signs of severe malnourished min at this time. Patient and son were educated on using protein supplementation such as Ensure. He was given a referral to Dr. Covarrubias GI, for further evaluation. He was also advised to follow-up with his PCP to discuss speech evaluation for stool studies. Patient and family were agreeable to this plan. Given strict return precautions. <Mango Sandoval DO - Last Filed: 04/16/25 04:02> Medical Records Medical records reviewed: Yes I reviewed the external patient's medical records. <Mango Sandoval DO - Last Filed: 04/16/25 04:02> Vital Signs Vital Signs: Vital Signs Temperature 98.5 F 04/15/25 18:21 Pulse Rate 90 04/15/25 18:21 Respiratory Rate 17 04/15/25 18:21 Blood Pressure 135/80 04/15/25 18:21 Pulse Oximetry 100 04/15/25 18:21 Oxygen Delivery Room Air 04/15/25 18:21 Temperature 98.5 F 04/15/25 18:21 Pulse Rate 68 04/15/25 22:12 Respiratory Rate 16 04/15/25 22:12 Blood Pressure 114/72 04/15/25 22:12 Pulse Oximetry 99 04/15/25 22:12 Oxygen Delivery Room Air 04/15/25 18:21 <Inna Perez PA-C - Last Filed: 04/16/25 02:56> Vital Signs Temperature 98.5 F 04/15/25 18:21 Pulse Rate 90 04/15/25 18:21 Respiratory Rate 17 04/15/25 18:21 Blood Pressure 135/80 04/15/25 18:21 Pulse Oximetry 100 04/15/25 18:21 Oxygen Delivery Room Air 04/15/25 18:21 Temperature 98.5 F 04/15/25 18:21 Pulse Rate 68 04/15/25 22:12 Respiratory Rate 16 04/15/25 22:12 Blood Pressure 114/72 04/15/25 22:12 Pulse Oximetry 99 04/15/25 22:12 Oxygen Delivery Room Air 04/15/25 18:21 <Mango Sandoval DO - Last Filed: 04/16/25 04:02> Lab Data Lab results reviewed: Yes I reviewed the patient's lab results. <Mango Sandoval DO - Last Filed: 04/16/25 04:02> Result diagrams: 04/15/25 21:33 04/15/25 21:33 <Inna Perez PA-C - Last Filed: 04/16/25 02:56> Labs: Lab Results 04/15/25 Range/Units 21:33 WBC 6.3 (4.5-10.0) K/mm3 RBC 4.61 (4.6-6.20) M/mm3 Hgb 13.0 L (14.0-18.0) g/dL Hct 40.2 L (42.0-52.0) % MCV 87.2 (80-100) fl MCH 28.2 (26-34) pg MCHC 32.3 (32-36) g/dl RDW 14.3 (11.5-14.5) % Plt Count 172 (150-375) k/mm3 MPV 8.8 (7.4-10.4) fl Immature Gran % (Auto) 0.3 (0-0.5) % Neut % (Auto) 70.5 (45.5-73.1) % Lymph % (Auto) 22.6 (18.3-44.2) % [place] % (Auto) 4.7 (2.6-8.5) % Eos % (Auto) 1.1 (0-4.4) % Baso % (Auto) 0.8 (0.2-1.2) % Lymph # (Auto) 1.43 (0.9-3.2) K/mm3 [place] # (Auto) 0.3 (0.1-0.6) K/mm3 Eos # (Auto) 0.1 (0-0.3) K/mm3 Baso # (Auto) 0.1 (0.0-0.1) K/mm3 Abs Immat Gran (auto) 0.02 (0.00-0.031) K/mm3 Absolute Neuts (auto) 4.5 (1.3-6.7) K/mm3 Absolute Nucleated RBC 0.000 (0.0-0.012) K/mm3 Nucleated RBC % 0.0 (0.0-0.2) % PT 13.5 (11.1-14.7) Seconds INR 1.0 APTT 28.0 (22.3-36.8) Seconds Sodium 138 (137-145) mmol/L Potassium 3.9 (3.4-5.0) mmol/L Chloride 103 (98-107) mmol/L Carbon Dioxide 26 (22-30) mmol/L Anion Gap 9 (4-12) mmol/L BUN 40 H D (9-20) mg/dL Creatinine 1.16 (0.7-1.3) mg/dL Estim Creat Clear Calc 74 ml/min Estimated GFR > 60 (59 - ) Glucose 89 (65-110) mg/dL Calcium 9.2 (8.4-10.2) mg/dL Total Bilirubin 0.9 (0.2-1.3) mg/dL AST 17 (17-59) U/L ALT 13 (6-50) U/L Alkaline Phosphatase 100 (38-126) U/L Troponin I < 0.012 (0.000-0.034) ng/mL Total Protein 7.2 (6.3-8.2) g/dL Albumin 4.3 (3.5-5.1) g/dL <Inna Perez PA-C - Last Filed: 04/16/25 02:56> Lab Results 04/15/25 Range/Units 21:33 WBC 6.3 (4.5-10.0) K/mm3 RBC 4.61 (4.6-6.20) M/mm3 Hgb 13.0 L (14.0-18.0) g/dL Hct 40.2 L (42.0-52.0) % MCV 87.2 (80-100) fl MCH 28.2 (26-34) pg MCHC 32.3 (32-36) g/dl RDW 14.3 (11.5-14.5) % Plt Count 172 (150-375) k/mm3 MPV 8.8 (7.4-10.4) fl Immature Gran % (Auto) 0.3 (0-0.5) % Neut % (Auto) 70.5 (45.5-73.1) % Lymph % (Auto) 22.6 (18.3-44.2) % [place] % (Auto) 4.7 (2.6-8.5) % Eos % (Auto) 1.1 (0-4.4) % Baso % (Auto) 0.8 (0.2-1.2) % Lymph # (Auto) 1.43 (0.9-3.2) K/mm3 [place] # (Auto) 0.3 (0.1-0.6) K/mm3 Eos # (Auto) 0.1 (0-0.3) K/mm3 Baso # (Auto) 0.1 (0.0-0.1) K/mm3 Abs Immat Gran (auto) 0.02 (0.00-0.031) K/mm3 Absolute Neuts (auto) 4.5 (1.3-6.7) K/mm3 Absolute Nucleated RBC 0.000 (0.0-0.012) K/mm3 Nucleated RBC % 0.0 (0.0-0.2) % PT 13.5 (11.1-14.7) Seconds INR 1.0 APTT 28.0 (22.3-36.8) Seconds Sodium 138 (137-145) mmol/L Potassium 3.9 (3.4-5.0) mmol/L Chloride 103 (98-107) mmol/L Carbon Dioxide 26 (22-30) mmol/L Anion Gap 9 (4-12) mmol/L BUN 40 H D (9-20) mg/dL Creatinine 1.16 (0.7-1.3) mg/dL Estim Creat Clear Calc 74 ml/min Estimated GFR > 60 (59 - ) Glucose 89 (65-110) mg/dL Calcium 9.2 (8.4-10.2) mg/dL Total Bilirubin 0.9 (0.2-1.3) mg/dL AST 17 (17-59) U/L ALT 13 (6-50) U/L Alkaline Phosphatase 100 (38-126) U/L Troponin I < 0.012 (0.000-0.034) ng/mL Total Protein 7.2 (6.3-8.2) g/dL Albumin 4.3 (3.5-5.1) g/dL <Mango Sandoval DO - Last Filed: 04/16/25 04:02> Imaging Data Attestation: I personally reviewed and interpreted this imaging study as follows: <Mango Sandoval DO - Last Filed: 04/16/25 04:02> My impression: Chest x-ray: Normal cardiac silhouette, no consolidations, no pleural effusions, no pulmonary vascular congestion <Mango Sandoval DO - Last Filed: 04/16/25 04:02> Radiologist's impression: Impressions Head CT 04/15/25 18:42 IMPRESSION: No acute intracranial hemorrhage or extra axial fluid collections. Chronic encephalomalacia changes within the left temporal lobe and bilateral occipital lobes reflective of remote infarct. All CT scans at this facility are performed using low dose modulation techniques as appropriate to perform exam including the following: automated exposure control; use of iterative reconstruction technique; adjustment of the mA and/or kV according to patient size (this includes techniques or standardized protocols for targeted exams where dose is matched to indication/reason for exam). Chest X-Ray 04/15/25 18:47 IMPRESSION: No acute lung findings.] [ ] <Mango Sandoval DO Last Filed: 04/16/25 04:02> ECG Data EKG #1: Attestation: I personally reviewed and interpreted this ECG as follows: <Mango Sandoval DO - Last Filed: 04/16/25 04:02> ECG completion date: 04/15/25 <Mango Sandoval Last Filed: 04/16/25 04:02> ECG completion time: 21:37 <Mango Sandoval Last Filed: 04/16/25 04:02> Interpretation: Sinus rhythm with first-degree AV block rate of 72, normal axis, nonspecific T-wave changes, no ST changes <Mango Sandoval DO Last Filed: 04/16/25 04:02> Discharge Plan Discharge Clinical Impression: Dysphagia Qualifiers: Dysphagia type: unspecified Qualified Code(s): R13.10 - Dysphagia, unspecified <Inna Perez PA-C - Last Filed: 04/16/25 02:56> Patient Disposition: Home <TY Alvarado Last Filed: 04/16/25 02:56> Condition: Stable <Inna Perez PA-C - Last Filed: 04/16/25 02:56> Instructions: Antibiotic Form, Dysphagia (ED) <Inna Perez PA-C - Last Filed: 04/16/25 02:56> Additional Instructions: You likely have dysphagia as a result of your prior strokes. Your not able to eat solid foods, try protein shakes such as Ensure, to supplement your nutrition. He were given a referral to Dr. Covarrubias, GI, follow up with his office in the next week. Follow up with her PCP in the next week for re-evaluation and likely for a swallow study. Return to the ED for any new or worsening symptoms. <Inna Perez PA-C - Last Filed: 04/16/25 02:56> Patient Language: Cook Islander <Inna Perez PA-C - Last Filed: 04/16/25 02:56> Prescriptions: No Action (DME) OneTouch Verio test strips Strip See Rx Instructions .ROUTE .MEDSUPPLY Qty: 100 1RF Rx Instructions: Use to test blood sugar twice daily (DME) blood-glucose meter [OneTouch Verio Reflect Meter] Mis See Rx Instructions .Route Qty: 1 0RF Rx Instructions: As directed Otezla 30 mg tablet 30 mg PO QAM AND QPM clobetasol 0.05 % cream 1 applic topical BID levetiracetam 500 mg tablet 500 mg PO Q12H clopidogrel 75 mg tablet 75 mg PO DAILY Qty: 90 1RF metformin 1,000 mg tablet 1,000 mg PO BID Qty: 180 1RF aspirin [Adult Low Dose Aspirin] 81 mg tablet,delayed release (DR/EC) 81 mg PO DAILY Qty: 30 2RF Rx Instructions: NEEDS APPOINTMENT FOR FURTHER REFILLS atorvastatin 80 mg tablet 80 mg PO DAILY Qty: 90 1RF sertraline 100 mg tablet 100 mg PO QHS Qty: 90 2RF ezetimibe [Zetia] 10 mg tablet 10 mg PO DAILY Qty: 90 1RF glimepiride 2 mg tablet See Rx Instructions .ROUTE .COMPLEX Qty: 90 1RF Dose Instruction: TAKE 1 TABLET BY MOUTH EVERY MORNING WITH BREAKFAST Rx Instructions: TAKE 1 TABLET BY MOUTH EVERY MORNING WITH BREAKFAST <Inna Perez PA-C - Last Filed: 04/16/25 02:56> Follow-up/Referrals: Aldo Pritchard MD [Physician, Gastroenterology] Bruce Mason DO [Primary Care Provider, Internal Medicine] <Inna Perez PA-C - Last Filed: 04/16/25 02:56>
[2025-04-15 21:39] LABS: Hematocrit 40.2 % (42.0-52.0); Hemoglobin 13.0 g/dL (14.0-18.0); Immature Granulocyte Percent A 0.3 % (0-0.5); Lymphocytes Absolute Auto 1.43 K/mm3 (0.9-3.2); Mean Corpuscular HGB Conc 32.3 g/dl (32-36); Mean Corpuscular Hemoglobin 28.2 pg (26-34); Mean Corpuscular Volume 87.2 fl (80-100); Nucleated Red Blood Cells Absolute Auto 0.000 K/mm3 (0.0-0.012); Nucleated Red Blood Cells Perc 0.0 % (0.0-0.2); Platelet Count Result 172 k/mm3 (150-375); Red Blood Count 4.61 M/mm3 (4.6-6.20); White Blood Count 6.3 K/mm3 (4.5-10.0)
[2025-04-15 21:49] LABS: Alanine Aminotransferase 13 U/L (6-50); Albumin Level 4.3 g/dL (3.5-5.1); Alkaline Phosphatase 100 U/L (38-126); Anion Gap 9 mmol/L (4-12); Aspartate Amino Transferase 17 U/L (17-59); Bilirubin,Total 0.9 mg/dL (0.2-1.3); Blood Urea Nitrogen 40 mg/dL (9-20); Calcium 9.2 mg/dL (8.4-10.2); Carbon Dioxide 26 mmol/L (22-30); Chloride 103 mmol/L (98-107); Estimated CRCL calculation 74 ml/min; Estimated Glomerular Filt Rate > 60; Glucose 89 mg/dL (65-110); Potassium 3.9 mmol/L (3.4-5.0); Sodium 138 mmol/L (137-145); Total Protein 7.2 g/dL (6.3-8.2)
[2025-04-15 21:50] LABS: INR 1.0; Partial Thromboplastin Time 28.0 Seconds (22.3-36.8); Prothrombin Time 13.5 Seconds (11.1-14.7)
[2025-04-15 22:01] LABS: Troponin I < 0.012 ng/mL (0.000-0.034)
[2025-04-15 22:12] VITALS: BP 114/72; PULSE 68; RESP 16; O2SAT 99
== END 2025-04-15 23:07 | disposition home or self-care (01) ==
PROVIDERS: Physician Assistant; Emergency Provider Student in an Organized Health Care Education/Training Program; PCP Internal Medicine
DX: R13.10 Dysphagia, unspecified (principal); G40.909 Epilepsy, unspecified, not intractable, without status epilepticus; E11.9 Type 2 diabetes mellitus without complications; E78.00 Pure hypercholesterolemia, unspecified; F32.A Depression, unspecified; F17.210 Nicotine dependence, cigarettes, uncomplicated; Z86.73 Personal history of transient ischemic attack (TIA), and cerebral infarction without residual deficits; Z79.61 Long term (current) use of immunomodulator; Z79.02 Long term (current) use of antithrombotics/antiplatelets; Z79.82 Long term (current) use of aspirin; Z79.84 Long term (current) use of oral hypoglycemic drugs; Z79.899 Other long term (current) drug therapy; I44.0 Atrioventricular block, first degree; R94.31 Abnormal electrocardiogram [ECG] [EKG]
CPT/HCPCS: 36415; 70450; 71046; 80053; 84484; 85025; 85610; 85730; 93005; 99284

== ENCOUNTER 2025-04-17 11:03 | Outpatient (CLI) | payer MEDICARE, SELFPAY ==
[2025-04-17 11:41] LABS: Hematocrit 40.2 % (42.0-52.0); Hemoglobin 13.0 g/dL (14.0-18.0); Immature Granulocyte Percent A 0.4 % (0-0.5); Lymphocytes Absolute Auto 1.11 K/mm3 (0.9-3.2); Mean Corpuscular HGB Conc 32.3 g/dl (32-36); Mean Corpuscular Hemoglobin 28.4 pg (26-34); Mean Corpuscular Volume 87.8 fl (80-100); Nucleated Red Blood Cells Absolute Auto 0.000 K/mm3 (0.0-0.012); Nucleated Red Blood Cells Perc 0.0 % (0.0-0.2); Platelet Count Result 190 k/mm3 (150-375); Red Blood Count 4.58 M/mm3 (4.6-6.20); White Blood Count 7.6 K/mm3 (4.5-10.0)
[2025-04-17 12:02] LABS: Alanine Aminotransferase 13 U/L (6-50); Albumin Level 4.3 g/dL (3.5-5.1); Alkaline Phosphatase 117 U/L (38-126); Anion Gap 10 mmol/L (4-12); Aspartate Amino Transferase 16 U/L (17-59); Bilirubin,Total 0.8 mg/dL (0.2-1.3); Blood Urea Nitrogen 42 mg/dL (9-20); Calcium 9.2 mg/dL (8.4-10.2); Carbon Dioxide 23 mmol/L (22-30); Chloride 104 mmol/L (98-107); Estimated Glomerular Filt Rate 55; Glucose 120 mg/dL (65-110); Potassium 4.2 mmol/L (3.4-5.0); Sodium 137 mmol/L (137-145); Total Protein 7.0 g/dL (6.3-8.2)
[2025-04-17 12:38] LABS: Thyroid Stimulating Hormone 0.722 uIU/mL (0.465-4.680)
--- OUTSIDE RECORDS SUMMARY | 2025-04-17 12:44 | XMS_ITS | Clinical Summary ---
Author Organization [facility] Address [address] [place] [address] Care Team Providers Care Director Credit Risk Name Role Phone Arianna Nichole MD Unavailable [phone] Bruce Mason DO Primary Care Provider [phone] Source Comments [facility],non-owned Affiliates and Associated Physician Practices is amultiple site organization consisting of ambulatory clinics and hospital sitesin [place], [place], [place] and [place]. This disclosure is being madepursuant to the Care Everywhere program and may not contain all information available regarding this patient. Last updated 18.[facility] Allergies Active Allergy Reactions Criticality Noted Date Comments Penicillins Urticaria Medium 06/15/2020 Medications * This document contains information received from the source organization and may not represent a complete record from that organization. * Be aware that medications may not be up to date on this document. Alwaysverify current medications with the patient. nicotine (Nicoderm CQ) 7 MG/24HR patchIndications :Cigarette smoker Apply 1 (one) patch to skin once daily as needed (If the patient asked) 30 patch 3 4 Active Additional Information Patient taking differently:1 patch Transdermal DAILY PRN, If the patient asked,Pt is using, but takes off the patch to smoke, Reported on 01/25/2025 aspirin (Aspirin) 81 MG chew tabletIndication s:Cerebrovascula r accident (CVA) due to embolism of precerebral artery (HCC) Take 1 (one) tablet by mouth once daily 100 tablet 3 4 Active atorvastatin (Lipitor) 80 MG tabletIndication s:Cerebrovascula r accident (CVA) due to embolism of precerebral artery (HCC) Take 1 (one) tablet by mouth at bedtime 90 tablet 3 4 Active clopidogrel (plaVIX) 75 MG tabletIndication s:Cerebrovascula r accident (CVA) due to embolism of precerebral artery (HCC) Take 1 (one) tablet by mouth once daily 90 tablet 2 4 Active glimepiride (Amaryl) 2 MG tabletIndication s:Type 2 diabetes mellitus without complication, without long-term current use of insulin (HCC) Take 1 (one) tablet by mouth daily with breakfast 90 tablet 4 Active metFORMIN (Glucophage) 1000 MG tabletIndication s:Type 2 diabetes mellitus without complication, without long-term current use of insulin ([facility]) Take 1 (one) tablet by mouth 2 times daily with morning and evening meal 90 tablet 4 Active clobetasol (Temovate) 0.05 % creamIndications :Psoriasis Apply to affected area 2 times daily 45 g 2 4 Active sertraline (Zoloft) 100 MG tabletIndication s:Recurrent major depressive disorder, in partial remission Take 1 (one) tablet by mouth once daily 90 tablet 5 Active apremilast (Otezla) 10 & 20 & 30 MG tabletIndication s:Other psoriasis Please take pills daily as outlined: Day 1: 10 mg in morning. Day 2: 10 mg in morning and 10 mg in evening. Day 3: 10 mg in morning and 20 mg in evening. Day 4: 20 mg in morning and 20 mg in evening.Day 5: 20 mg in morning and 30 mg in evening. Day 6 and thereafter: 30 mg twice daily 55 Each 5 Active Apremilast (Otezla) 30 MGIndications:Ot her psoriasis Take 1 (one) tablet by mouth 2 times daily 60 tablet 11 5 Active triamcinolone acetonide (Kenalog) 0.1 % ointmentIndicati ons:Psoriasis Apply to affected area on trunk and extremities twice daily as needed for up to 3 weeks per month, 30 day supply Reasons: Psoriasis 454 g 1 5 Active Varenicline Tartrate, Starter, (Chantix Starting Month ) 0.5 MG X 11 & 1 MG X 42 tabletsIndicatio ns:Tobacco abuse FOLLOW PACKAGE DIRECTIONS 53 tablet 5 Active levETIRAcetam CR 24hr (Keppra XR) 500 MG tablet Take 2 (two) tablets by mouth at bedtime 180 tablet 3 5 Active Active Problems Problem Noted Date Diagnosed Date Family history of stroke 06/27/2024 Abnormal EKG 11/25/2023 History of multiple strokes 11/25/2023 Nicotine dependence 11/25/2023 Thrombocytopenia 11/25/2023 Altered mental status, unspe cified altered mental status type 08/02/2023 Diabetes mellitus with hyperglycemia 08/02/2023 Cigarette smoker 08/02/2023 Hyperlipidemia 06/26/2020 Hypertension 06/26/2020 Encounter for screening for cardiovascular disor ders 06/18/2020 Cerebrovascular accident (CVA) 06/15/2020 Occlusion and stenosis of bilateral carotid jonathan mar 05/16/2020 Abnormal cardiovascular stress test 02/04/2017 Other specified symptoms and signs involving the circulatory and respiratory systems 01/07/2017 Snoring 01/07/2017 Tobacco abuse 01/07/2017 Benign essential HTN 06/25/2016 Overview (06/27/2024): HTN (hypertension), benign Hemiplegia 06/25/2016 Overview (06/27/2024): CVA, old, hemiparesis History of cardiovascular surgery 06/25/2016 Overview (06/27/2024): Status post placement of implantable loop recorder Obesity 06/25/2016 Overview (06/27/2024): Obesity, Class I, BMI 30.0-34.9 (see actual BMI) Type 2 diabetes mellitus 06/25/2016 Overview (06/27/2024): DM type 2 with diabetic dyslipidemia Encounters Date Type Department Care Team Description 03/07/2025 11:00 AM CDT Office Visit [facility] - Neurology [address] [place] [address], [place] [address] Brisa Blanchard PA-C Seizures (HCC) (Primary Dx) 03/07/2025 Travel 02/20/2025 Refill [facility] - Pulmonology [address] [facility], [place] [address] Tereza Gooden MD Refill Request 01/31/2025 Refill [facility] [address] [place] [address] Abiola aLwrence MD Refill Request 01/25/2025 10:30 AM CDT Office Visit [facility] - Pulmonology [address] [place] [address], [facility] [place] [address] Tereza Gooden MD Lung nodule (Primary Dx); Tobacco abuse; Dyspnea on exertion 01/25/2025 Travel from Last 3 Months Immunizations Immunization Administration Dates Next Due Covid Moderna primary monova lent 12+ yr 0.5mL 06/22/2021,08/27/2020,07/31/2020 PNEUMOCOCCAL PCV20 CONJ VAC IM 10/21/2023 TDAP, HISTORIC VACCINE 04/04/2019 Social History Tobacco Use Types Packs/Day Years Used Date Smoking Tobacco: Every Day Cigarettes 2 45.5 Started: 10/23/1979 Cigars Started: 2014 Smokeless Tobacco: Never Tobacco Cessation:Ready to Q uit: Not Asked; Counseling Given: Not Answered Alcohol Use Standard Drinks/Week Comments Not Currently 0 (1 standard drink = 0.6 oz pur e alcohol) PHQ-2 Answer Date Recorded Patient Health Questionnaire-2 Score 0 08/03/2023 Sex and Gender Information Value Date Recorded Sex Assigned at Not on file Legal Sex Male 5:42 PM GASKET NOTCHER Gender Identity Not on file Sexual Orientation Not on file Last Filed Vital Signs Vital Sign Reading Time Taken Comments Blood Pressure 104/64 03/07/2025 10:41 AM CDT Pulse 76 03/07/2025 10:41 AM CDT Temperature 36.9 C (98.4 F) 01/25/2025 10:31 AM CDT Respiratory Rate 17 01/25/2025 10:31 AM CDT Oxygen Saturation 98% 03/07/2025 10:41 AM CDT Inhaled Oxygen Concentration - - Weight 95.7 kg (211 lb) 03/07/2025 10:41 AM CDT Height 188 cm (6' 2) 01/25/2025 10:31 AM CDT Body Mass Index 27.09 01/25/2025 10:31 AM CDT Plan of Treatment Upcoming Encounters Date Type Department Care Team (Late st Contact Info) Description 04/25/2025 1:00 AM GASKET NOTCHER Clinical Support [facility] - Cardiology [facility] [address] [phone] 04/30/2025 8:20 AM GASKET NOTCHER Appointment [facility] [address] [place] [address] Tereza Gooden MD [address] [place] [address] 2L DIV OF PULMONARY/[place] [address] 05/31/2025 1:00 AM GASKET NOTCHER Clinical Support [facility] - Cardiology [address] [place] [phone] 06/28/2025 10:30 AM GASKET NOTCHER [facility] [address] [place] [address], [place] [phone] Tereza Gooden MD [address] [place] [address] 2L DIV OF PULMONARY/[place] [phone] 08/01/2025 11:30 AM GASKET NOTCHER Office Visit [facility] - General Dermatology [address], [address] [phone] Rich Mehta PAIvan [address] [address] 09/05/2025 9:00 AM CDT Office Visit [facility] - Neurology [address] [facility], [facility] [place] [phone] Brisa Blanchard PA-C [address] [place] [address] Health Maintenance Due Date Last Done Comments COLOGUARD (AGES 45-75) - COLON CA SCREENING 1966 COLON MONITORING 1966 COLONOSCOPY - COLON CA SCREENING 1966 CT COLONOGRAPHY - COLON CA SCREENING 1966 Colorectal Cancer Screening 1966 FIT - COLON CA SCREENING 1966 FLEX SIG - COLON CA SCREENING 1966 HIV SCREENING 1981 HEPATITIS C SCREENING 10/17/1984 HEPATITIS B VACCINE (1 of 3 - 19+ 3-dose series) 1985 ZOSTER VACCINE (1 of 2) 2016 DIABETES RETINOPATHY SCREENING 08/02/2023 DIABETES-FOOT EXAM WITH MONOFILAMENT 08/02/2023 DIABETES-HGB A1C 10/31/2023 08/02/2023, 06/16/2020 DEPRESSION SCREENING 06/06/2024 08/01/2023 DIABETES - URINE PROTEIN SCREENING 06/06/2024 MEDICARE AWV CALENDAR YEAR 2024 DIABETES-SERUM CREATININE 08/03/20242023, 08/03/2023, 08/01/2023, Additional history exists COVID-19 VACCINE ( season) 2025 06/22/2021, 08/27/2020, 07/31/2020 INFLUENZA VACCINE (#1) 2025 LUNG CANCER SCREENING 04/17/2025 04/17/2024 DTAP/TDAP/TD VACCINES (2 - Td or Tdap) 04/04/2029 04/04/2019 PNEUMOCOCCAL VACCINE 50+ Completed 10/21/2023 HIB VACCINE Aged Out No longer eligi ble based on patient's age to complete this topic HPV VACCINE Aged Out No longer eligi ble based on patient's age to complete this topic MENINGOCOCCAL (Group B) VACCINE SHARED DECISION-MAKING Aged Out No longer eligible based on patient's age to complete this topic MENINGOCOCCAL GROUPS A/C/Y/W VACCINE Aged Out No longer eligible based on patient's age to complete this topic Medical Devices Implanted Type Area Supervisor Body Assembly Device Identifier Shelf Expiration Date Model / Serial / Lot Sys Crd Mntr Rvl Linq Mycarelink Ins - [id number] Implanted:Qty: 1 on 06/18/2020 by Victor Manuel Alvarado MD at [facility] [employer] 03/03/2021 LINQSYS / [id number] / Description:MyCareLink Patie nt Monitor Model [id number] Rcdr Crd Linq Ii Ins - [id number] Implanted:Qty: 1 on 08/03/2023 by Yarely Doherty MD at [facility] [employer] [id number] 09/21/2024 LNQ22 / [id number] / [id number] Procedures Procedure Name Priority Date/Time Associated Diagnosis Comments HI ILR DEVICE INTERROGAT REMOTE Routine 02/24/2025 2:34 PM CDT Cerebrovascular accident (CVA), unspecified mechanism (HCC) Status post placement of implantable loop recorder CT LUNG SCREEN LOW DOSE Routine 04/17/2024 12:50 PM GASKET NOTCHER Tobacco abuse BASIC METABOLIC PANEL (CALCIUM TOTAL) Routine 08/04/2023 3:24 AM GASKET NOTCHER Type 2 diabetes mellitus with hyperglycemia, unspecified whether intermediate school teacher insulin use HEMOGLOBIN A1C JOHN 08/02/2023 4:48 AM GASKET NOTCHER Type 2 diabetes mellitus with hyperglycemia, unspecified whether intermediate school teacher insulin use from Last 3 Months or Most Recently Relevant to Health Maintenance Results * HI ILR DEVICE INTERROGAT REMOTE (02/24/2025 2:34 PM CDT) Narrative Victor Manuel Alvarado MD - 02/24/2025 2:34 PM CDT Victor Manuel Alvarado MD 02/24/2025 2:34 PM Dear Gabino W Eson, I reviewed the remote interrogation of your loop recorder. Your device's sensing is appropriate and stable. During this most recent monitored period ending on 01/08/2025 your atrial fibrillation/tachycardia burden was 0% and you had no significant arrhythmias. Device function is normal, no programming changes are required, and no medications will need to be changed. Please call our offices if you have any further questions. Sincerely, Victor Manuel Alvarado 02/24/2025 \F25 Victor Manuel Alvarado MD PROCEDURE/MINOR SURGICAL ORDERAB LES Final Result * CT LUNG CANCER SCREEN LOW DOSE (04/17/2024 12:50 PM GASKET NOTCHER) Anatomical Region Laterality Modality Chest Computed Tomogra phy 04/17/2024 1:54 PM GASKET NOTCHER Narrative 04/17/2024 2:01 PM GASKET NOTCHER PROCEDURE: CT LUNG SCREEN LOW DOSE DATE/TIME OF EXAM: 04/17/2024 12:51 PM CLINICAL INFORMATION: None relevant/not provided if blank. Indication: Z72.0: Tobacco abuse Additional History: COMPARISON: 01/25/[address] angiogram on 06/15/2020. TECHNIQUE: CT of the chest was performed without intravenous contrast utilizing low dose protocol. CT dose reduction technique was used, including Automated Exposure Control. FINDINGS: Central tracheobronchial tree: Clear. No endobronchial nodules are seen. Lungs: An approximately 11 x 8 mm pulmonary nodule in the upper lobe of the left lung with heterogeneous calcification (image 41 series 6) it shows no significant interval change since 06/15/2020. No pulmonary nodules elsewhere. No acute consolidations or lung parenchymal lesions. Pleura: No significant pleural effusion. No pneumothorax. Heart: Heart is not enlarged. No significant pericardial effusion. Spotty calcification in the left coronary artery. Megan/mediastinum: No abnormally enlarged hilar or mediastinal lymph nodes by noncontrast technique. Bones: No significant osseous changes. Mild degenerative changes with the endplate erosions noted in the lower thoracic vertebral bodies. Upper abdomen: Cholelithiasis. ASSESSMENT: A calcified 1.1 cm nodule is reidentified in the upper lobe of the left lung and it shows no significant change since 2020. Lung-RADS 2: Benign appearance or behavior. RECOMMENDATION: Routine annual screening is recommended. ACR Lung-RADS Category/Recommendations: 0: Need prior comparisons or additional images 1: Negative: 12 month follow up LDCT (Low Dose CT) 2: Benign Appearin month follow up LDCT 3: Probably Benign: 6 month follow up LDCT 4A: Suspicious: 3 month follow up LDCT (or immediate PET if >7mm solid component) 4B: Suspicious: Immediate Chest CT or PET if >7mm solid component 4X: Cat 3 or 4A nodules with additional suspicious findings Modifier-S: Significant NON-lung cancer findings Modifier-C: Prior treated Lung Cancer. For details of the ACR Lung-RADS program, categories and recommendations: 1) https://www.acr.org/Quality-Safety/Resources/LungRADS 2) Internet search: Lung-RADS Lung Cancer Screening 3) Contact [facility] thoracic nurse coordinator ([phone]) > Interpreting Provider: Amanda Long MD on 04/17/2024 2:01 PM Procedure Note Amanda Long MD - 04/17/2024 PROCEDURE: CT LUNG SCREEN LOW DOSE DATE/TIME OF EXAM: 04/17/2024 12:51 PM CLINICAL INFORMATION: None relevant/not provided if blank. Indication: Z72.0: Tobacco abuse Additional History: COMPARISON: 01/25/[address] angiogram on 06/15/2020. TECHNIQUE: CT of the chest was performed without intravenous contrast utilizing low dose protocol. CT dose reduction technique was used, including Automated ExposureControl. FINDINGS: Central tracheobronchial tree: Clear. No endobronchial nodules are seen. Lungs: An approximately 11 x 8 mm pulmonary nodule in the upper lobe ofthe left lung with heterogeneous calcification (image 41 series 6) it showsno significant interval change since 06/15/2020. No pulmonary nodules elsewhere. No acute consolidations or lungparenchymal lesions. Pleura: No significant pleural effusion. No pneumothorax. Heart: Heart is not enlarged. No significant pericardial effusion.Spotty calcification in the left coronary artery. Megan/mediastinum: No abnormally enlarged hilar or mediastinal lymphnodes by noncontrast technique. Bones: No significant osseous changes. Mild degenerative changes withthe endplate erosions noted in the lower thoracic vertebral bodies. Upper abdomen: Cholelithiasis. ASSESSMENT: A calcified 1.1 cm nodule is reidentified in the upper lobe of the left lung and it shows no significant change since 2020. Lung-RADS 2: Benign appearance or behavior. RECOMMENDATION: Routine annual screening is recommended. ACR Lung-RADS Category/Recommendations: 0: Need prior comparisons or additional images 1: Negative: 12 month follow up LDCT (Low Dose CT) 2: Benign Appearin month follow up LDCT 3: Probably Benign: 6 month follow up LDCT 4A: Suspicious: 3 month follow up LDCT (or immediate PET if >7mm solid component) 4B: Suspicious: Immediate Chest CT or PET if >7mm solid component 4X: Cat 3 or 4A nodules with additional suspicious findings Modifier-S: Significant NON-lung cancer findings Modifier-C: Prior treated Lung Cancer. For details of the ACR Lung-RADS program, categories andrecommendations: 1) https://www.acr.org/Quality-Safety/Resources/LungRADS 2) Internet search: Lung-RADS Lung Cancer Screening 3) Contact [facility] thoracic nurse coordinator ([phone]) > Interpreting Provider: Amanda Long MD on 42:01 PM Tereza Gooden MD CT ORDERABLES Final Result * (ABNORMAL) BASIC METABOLIC PANEL (CALCIUM TOTAL) (08/04/2023 3:24 AM GASKET NOTCHER) BUN 16 7 - 26 mg/dL 08/04/2023 4:12 AM [facility] Creatinine 0.80 0.71 - 1.16 mg/dL 08/04/2023 4:12 AM [facility] Sodium 141 136 - 145 mmol/L 08/04/2023 4:12 AM [facility] Potassium 3.7 3.5 - 4.5 mmol/L 08/04/2023 4:12 AM [facility] Chloride 107 98 - 107 mmol/L 08/04/2023 4:12 AM [facility] CO2 26 22 - 29 mmol/L 08/04/2023 4:12 AM [facility] Glucose 155(H) 70 - 115 mg/dL 08/04/2023 4:12 AM [facility] Calcium 9.1 8.4 - 10.2 mg/dL 08/04/2023 4:12 AM [facility] Anion Gap 8 6 - 16 08/04/2023 4:12 AM [facility] BUN/Creatinine Ratio 20 7 - 23 08/04/2023 4:12 AM [facility] Osmolality Calculated 296(H) 275 - 295 mOsm/kg 08/04/2023 4:12 AM [facility] eGFR by CKD-EPI >90 >=90 mL/min/1.7 3 m2 08/04/2023 4:12 AM [facility] Blood BLOOD SPECIMEN / Unknown Lab Venipuncture / Unknown 08/04/2023 3:24 AM GASKET NOTCHER 08/04/2023 3:44 AM [facility] Win Linda TANK CHARGER-FAN INSTALLER LAB - CHEMISTRY ORD ERABLES Final Result [facility] [address] [place] [phone] [phone] * (ABNORMAL) HEMOGLOBIN A1C (08/02/2023 4:48 AM [facility]) Hemoglobin A1c 9.5(H) <=5.6 % 08/02/2023 9:03 AM [facility] Estimated Average Glucose 226 mg/dL 08/02/2023 9:03 AM [facility] Comment: HbA1c Interpretation: Normal : < 5.7% Pre-diabetes: 5.7-6.4% Diabetes: Equal to or greater than 6.5% Test results diagnostic of diabetes should be repeated for confirmation. Treatment target values recommended by ADA and other clinical organizations should be used to evaluate metabolic control in patients. Reference: [place] [employer], Standards of Care in Diabetes -2020 In patients 70 years and older consider HbA1c target range of 7.0-7.5% (Reference: Dany Gorman et al. PORFIRIODA. 2012) The Sebia assay for the measurement of HbA1c is a National Glycohemoglobin Standardization Program (NGSP) certified method. Blood BLOOD SPECIMEN / Unknown Venipuncture / Unknown 08/02/2023 4:48 AM GASKET NOTCHER 08/02/2023 4:51 AM GASKET NOTCHER Win Linda T[employer] CHARGER-FAN INSTALLER LAB - CHEMISTRY ORD ERABLES Final Result [facility] [address] [place] [address], [facility] [phone] from Last 3 Months or Most Recently Relevant to Health Maintenance Insurance [facility] MANAGED MEDICARE ADV Advance Directives Documents on File Type Date Recorded Patient Tar Heater Expl anation Adv Directive/Living Will/POA 08/11/2023 12:31 PM * Full Code (Latest Code Status on File) Date Activated Date Inactivated Comments 08/02/2023 5:09 AM 08/04/2023 7:22 PM * Full Code Date Activated Date Inactivated Comments 06/15/2020 8:36 PM 06/18/2020 8:17 PM Care Teams Director Credit Risk Relationship Specialty Start Date End Date Bruce Mason DO [address] [place] [phone] PCP - General Internal Medicine 06/27/24 Arianna Nichole MD [address] OF [facility] [place] [phone] Physician Internal Medicine 04/10/24
--- OUTSIDE RECORDS SUMMARY | 2025-04-17 12:44 | XMS_ITS | Encounter Summary ---
Author Organization [facility] Address [address] [place] [address] Care Team Providers Care Drainage Engineer Name Role Phone Arianna Nichole MD Unavailable [phone] Bruce Mason DO Primary Care Provider [phone] Encounter Details Date Type Department Care Team (Late st Contact Info) Description 09/12/2024 Telephone [facility] - Dermatology [address] [place] [address], [facility] [place] [address] Baldev Feliciano MD [address] [place] [address] [address] [place] [address] Social History Tobacco Use Types Packs/Day Years [...] on file Legal Sex Male 5:42 PM MANAGER HRIS Gender Identity Not on file Sexual Orientation Not on file documented as of this encounter Functional Status * Is person deaf or have serious hearing difficulty? Answer Date of Assessment Author No 06/18/2020 4:38 PM MANAGER HRIS Sa terri Silva, ASSOCIATE PROFESSOR OF SURGERY-CONTRACTS MANAGER * Is person blind or have serious difficulty seeing? Answer Date of Assessment Author No 06/18/2020 4:38 PM MANAGER HRIS Shira, Sa mantha, ASSOCIATE PROFESSOR OF SURGERY-CONTRACTS MANAGER * Does person have serious difficulty walking/climbing stairs? Answer Date of Assessment Author No 06/18/2020 4:38 PM MANAGER HRIS Shira, Sa mantha, ASSOCIATE PROFESSOR OF SURGERY-CONTRACTS MANAGER * Does person have difficulty dressing/bathing? Answer Date of Assessment Author No 06/18/2020 4:38 PM MANAGER HRIS Shira, Sa mantha, ASSOCIATE PROFESSOR OF SURGERY-CONTRACTS MANAGER * Does person have difficulty doing errands alone? Answer Date of Assessment Author Yes 06/18/2020 4:38 PM MANAGER HRIS Shira, Sa mantha, ASSOCIATE PROFESSOR OF SURGERY-CONTRACTS MANAGER documented as of this encounter Mental Status * Does person have difficulty concentrating/remembering/making decisions? Answer Entry Date Author Yes 06/18/2020 4:38 PM MANAGER HRIS Shira, Sa mantha, ASSOCIATE PROFESSOR OF SURGERY-CONTRACTS MANAGER documented in this encounter Progress Notes * Mirna Neves - 09/20/2024 1:33 PM CDT Medication Prior Authorization: Medication: Otezla starter pack and Otezla 30mg tablet Status: Approved 09/12/24 through 03/14/25 Submitted via: Cover My Meds (Nation: [id number]) Insurance: [employer] (p: [phone]) (f: [phone]) Case/Reference number: ID: [id number] RX Card Billing Info: BIN: [id number] PCN: [id number] GROUP: [id number] ID: [id number] PA approval notice uploaded to media tab. Routed approval details to [facility] and will have case management coordinator reach out to patient as well. Mirna Neves- Pharmacy Pit Laborer (Dermatology) documented in this encounter Miscellaneous Notes * Telephone Encounter - Carla Panda - 09/17/2024 1:17 PM CDT Fax provider form and insurance cardsd to [employer] I do not have a copy of [...] Part Dand currently waiting on decision. Nation: [id number] Provider:[phone] (Braden) Mirna Neves Community Relations Assistant - Pharmacy Pit Laborer documented in this encounter Plan of Treatment Upcoming Encounters Date Type Department Care Team (Late st Contact Info) Description 04/25/2025 1:00 AM MANAGER HRIS Clinical Support [facility] - Cardiology [address] [address] 04/30/2025 8:20 AM MANAGER HRIS Appointment [facility] CAT SCAN [address] [place] [address] Tereza Gooden MD [facility]5 [facility] 2L DIV OF PULMONARY/[place] [address] 05/31/2025 1:00 AM MANAGER HRIS Clinical Support [facility] - Cardiology [address] [address] 06/28/2025 10:30 AM MANAGER HRIS Office Visit [facility] - Pulmonology [address] [facility], [place] [address] Tereza Gooden MD [facility]5 [facility] 2L DIV OF PULMONARY/[place] [address] 08/01/2025 11:30 AM MANAGER HRIS Office Visit [facility] - General Dermatology [address], [facility] [address] [place] [address] Rich Mehta PA-C [address] [facility] [address] [place] [address] 09/05/2025 9:00 AM CDT Office Visit [facility] - Neurology [address] [facility], [place] [address] Brisa Blanchard PA-C [address] [place] [address] documented as of this encounter Visit Diagnoses Not on filedocumented in this encounter Care Teams Drainage Engineer Relationship Specialty Start Date End Date Bruce Mason DO [address] [place] [phone] PCP - General Internal Medicine 06/27/24 Arianna Nichole MD [address] [place] [address] DIV OF [place] [address] Physician Internal Medicine 04/10/24 documented as of this encounter
--- OUTSIDE RECORDS SUMMARY | 2025-04-17 12:44 | XMS_ITS | Clinical Summary ---
Author Organization [facility] Address [address] [place] [address] Care Team Providers Care Termite Renewal Inspector Name Role Phone JovitaabdulkadirBruce middleton DO Primary Care Provider [phone] Allergies Active Allergy Reactions Criticality Noted Date [...] to complete this topic Insurance Care Teams Termite Renewal Inspector Relationship Specialty Start Date End Date Bruce Mason DO [address] [place] [address] PCP - General INTERNAL MEDICINE 03/29/18
--- OUTSIDE RECORDS SUMMARY | 2025-04-17 12:44 | XMS_ITS | Encounter Summary ---
Author Organization [facility] Address [address] [place] [address] Care Team Providers Care Manufacturing Engineering Professor Name Role Phone Arianna Nichole MD Unavailable [phone] Bruce Mason DO Primary Care Provider [phone] Reason for Visit * Reason Onset Date Comments Reschedule Appointment 07/27/2024 Encounter Details Date Type Department Care Team (Late st Contact Info) Description 07/27/2024 Telephone [facility] - Pulmonology [address] [facility], [place] [address] Tereza Gooden MD [address] [place] [address] DIV OF PULMONARY/[place] [address] Reschedule Appointment Social History Tobacco [...] on file Legal Sex Male 5:42 PM 21 DEALER Gender Identity Not on file Sexual Orientation Not on file documented as of this encounter Functional Status * Is person deaf or have serious hearing difficulty? Answer Date of Assessment Author No 06/18/2020 4:38 PM 21 DEALER Shira, Sa mantha, DRILLER AND REAMER-PAPER STRIPPER * Is person blind or have serious difficulty seeing? Answer Date of Assessment Author No 06/18/2020 4:38 PM 21 DEALER Shira, Sa mantha, DRILLER AND REAMER-PAPER STRIPPER * Does person have serious difficulty walking/climbing stairs? Answer Date of Assessment Author No 06/18/2020 4:38 PM 21 DEALER Shira Sa mantha, DRILLER AND REAMER-PAPER STRIPPER * Does person have difficulty dressing/bathing? Answer Date of Assessment Author No 06/18/2020 4:38 PM 21 DEALER Shira, Sa mantha, DRILLER AND REAMER-PAPER STRIPPER * Does person have difficulty doing errands alone? Answer Date of Assessment Author Yes 06/18/2020 4:38 PM 21 DEALER Shira Sa mantkameron, DRILLER AND REAMER-PAPER STRIPPER documented as of this encounter Mental Status * Does person have difficulty concentrating/remembering/making decisions? Answer Entry Date Author Yes 06/18/2020 4:38 PM 21 DEALER Shira Sa mantkameron, DRILLER AND REAMER-PAPER STRIPPER documented in this encounter Miscellaneous Notes * [...] other scheduled appointments Patient Call Back number: [phone] 21 DEALER documented in this encounter Plan of Treatment Upcoming Encounters Date Type Department Care Team (Late st Contact Info) Description 04/25/2025 1:00 AM 21 DEALER Clinical Support [facility] - Cardiology [address] [facility], [facility] [address] [place] [address] 04/30/2025 8:20 AM 21 DEALER Appointment [facility] CAT SCAN [address] [place] [address] Tereza Gooden MD [address] OF PULMONARY/[place] [phone] 05/31/2025 1:00 AM 21 DEALER Clinical Support [facility] - Cardiology [address] [facility], [facility] [address] [place] [address] 06/28/2025 10:30 AM 21 DEALER Office Visit [facility] - Pulmonology [address] [facility], [place] [address] Tereza Gooden MD [address] [place] [address] 2L DIV OF PULMONARY/[place] [address] 08/01/2025 11:30 AM 21 DEALER Office Visit [facility] - General Dermatology [address], [facility] 200 [place] [phone] Rich Mehta PAIvan [address] [facility] [address] [place] [address] 09/05/2025 9:00 AM CDT Office Visit [facility] - Neurology [address] [facility], [place] [phone] Brisa Blanchard PA-C [address] [place] [address] documented as of this encounter Visit Diagnoses Not on filedocumented in this encounter Care Teams Manufacturing Engineering Professor Relationship Specialty Start Date End Date Bruce Mason DO [address] [place] [phone] PCP - General Internal Medicine 06/27/24 Arianna Nichole MD [address] [place] [address] 2L [place] [address] Physician Internal Medicine 04/10/24 documented as of this encounter
== END 2025-04-17 11:04 | disposition home or self-care (01) ==
LOC: ANHLAB 11:04
PROVIDERS: PCP Internal Medicine; Visit Provider Nurse Practitioner
DX: E86.0 Dehydration (principal); R53.1 Weakness
CPT/HCPCS: 36415; 80053; 84443; 85025

== ENCOUNTER 2025-06-03 14:18 | Outpatient (CLI) | payer MEDICARE, SELFPAY ==
--- OUTSIDE RECORDS SUMMARY | 2025-06-03 14:34 | XMS_ITS | Clinical Summary ---
Author Organization [facility] Address [address] [place] [address] Care Team Providers Care Diesel Power Shovel Operator Name Role Phone Bruce Mason DO Primary Care Provider [phone] Allergies Active Allergy Reactions Criticality Noted Date [...] Take 81 mg by mouth daily. Active Encounters Date Type Department Care Team Description 05/23/2025 12:39 PM MOPHEAD TRIMMER AND WRAPPER - 05/23/2025 11:59 PM MOPHEAD TRIMMER AND WRAPPER Hospital Encounter [facility] [address] [place] [address] Emy Zaman, [facility]- Discharge Disposition: Home or Self Care (Routine Discharge) 05/23/2025 Travel from Last 3 Months Family History Medical History Relation Comments Diabetes [...] Information Value Date Recorded Sex Assigned at Male 05/23/2025 12:24 PM MOPHEAD TRIMMER AND WRAPPER Legal Sex Male 1:09 PM CDT Gender [...] 1965 Annual Physical 1969 Hepatitis C 1984 Hepatitis B Vaccines (1 of 3 - 19+ 3-dose series) 1985 Zoster Vaccines (1 of 2) 2016 COVID-19 Vaccine ( season) 2025 06/22/2021, 09/23/2020, 08/27/2020, Additional history exists Influenza Adult (#1) 2025 DTaP, Tdap and Td Vaccines (2 - Td or Tdap) 04/04/2029 04/04/2019 Pneumococcal Vaccine: 50+ Years Completed 10/21/2023 Hepatitis A Vaccines Aged Out No long [...] on patient's age to complete this topic Procedures Procedure Name Priority Date/Time Associated Diagnosis Comments XR UGI+SMALL BOWEL Routine 05/23/2025 3: 31 PM MOPHEAD TRIMMER AND WRAPPER Abnormal weight loss Dysphagia, unspecified Anorexia from Last 3 Months Results * XR UGI+SMALL BOWEL (05/23/2025 3:31 PM MOPHEAD TRIMMER AND WRAPPER) Anatomical Region Laterality Modality Abdomen Fluoroscopy, Rad iographic Imaging 05/23/2025 3:27 PM MOPHEAD TRIMMER AND WRAPPER Impressions 05/23/2025 3:48 PM MOPHEAD TRIMMER AND WRAPPER IMPRESSION: Normal swallowing mechanism. Normal esophageal motility and distensibility with no apparent esophagitis. No hiatal hernia or reflux when the patient was upright but small intermittent hiatal hernia and small volume gastroesophageal reflux occurred with the patient in a horizontal position. Normally distensible stomach with no apparent ulcer. Normal passage of fluid from the stomach into the duodenum and jejunum. No duodenal ulcer or diverticulum. Ligament of Treitz in normal position. 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 Distal ileum crosses to the cecum in the right lower quadrant abdomen. No small bowel obstruction or appreciable inflammation. Small bowel transit time of less than 90 minutes. Ordered By: EMY ZAMAN Interpreted By: Ildefonso Borden, 05/23/2025 3:27 PM Narrative 05/23/2025 3:48 PM MOPHEAD TRIMMER AND WRAPPER [address] [address] IMAGING STUDIES: XR UGI+SMALL BOWEL DATE: 05/23/2025 12:43 PM HISTORY: Abnormal weight loss 59-year-old male. Dysphasia. Abnormal weight loss/anorexia. COMPARISON: None at this institution. TECHNIQUE: Television Script Writer images of the abdomen and pelvis. With the patient standing, he swallowed a barium tablet followed by water. He ingested effervescent crystals and then thick barium while in the lateral and AP positions while intermittent fluoroscopy and multiple images obtained. Patient then placed in a horizontal position. Double contrast imaging performed of the stomach and duodenum in LPO, supine, RPO, and SHELL positions. In the SHELL position, patient ingested thin barium while intermittent fluoroscopy and multiple images obtained of the esophagus, stomach, and duodenum. Initiation of small bowel portion of the study. Patient ingested the remaining thin barium. Images of the abdomen and pelvis obtained at 20 minutes, 40 minutes, 60 minutes, 90 minutes, and 120 minutes from the time the patient started to ingest barium for the upper GI portion of the study. Fluoroscopy time: 1 minute 12 seconds. Radiation exposure: Total ED 35 mGy, total DAP 489 dGycm2. DISCUSSION: Normal swallowing of barium tablet and fluid. No laryngeal penetration or aspiration. Barium tablet quickly passed to the stomach. Normal motility and distensibility of the esophagus. No apparent esophageal ulcer or erosion. No appreciable hiatal hernia with the patient upright but very small intermittent sliding hiatal hernia noted when the patient was in a horizontal position. No spontaneous gastroesophageal reflux when the patient was upright but intermittent small volume gastroesophageal reflux when the patient was in a horizontal position. Normally distensible stomach with no apparent ulcer or erosion. Normal emptying from the stomach into the duodenum. Normal duodenal distension with no apparent ulcer or erosion. On coffee shop manager images of the abdomen and pelvis, mild colonic stool. The ligament of Treitz is in normal position but the jejunal loops are primarily in the right abdomen and in the pelvis. No apparent fold thickening or dilation of jejunal loops. Contrast had progressed into the proximal ileum at 20 minutes. At 40 minutes, contrast had progressed at least to the mid ileum. At 60 minutes, contrast is to the distal ileum. Distal ileal loops have crossed from the left abdomen to the right lower abdomen. At 90 minutes, contrast has advanced into the cecum and ascending colon with decreasing contrast in jejunal loops and proximal ileal loops. At 120 minutes, contrast has advanced to the descending colon. Mild stool in the ascending colon, transverse colon and visualized proximal descending colon. Small volume contrast remaining within the jejunum and has also substantially decreased within ileal loops. No particularly dilated jejunal or ileal loops 2 suggest small bowel obstruction. No apparent fold thickening to suggest enteritis. Procedure Note Ildefonso Borden MD - 05/23/[address] [address] IMAGING STUDIES: XR UGI+SMALL BOWELDATE: 05/23/2025 12:43 PM HISTORY: Abnormal weight loss 59-year-old male. Dysphasia. Abnormalweight loss/anorexia. COMPARISON: None at this institution. TECHNIQUE: Television Script Writer images of the abdomen and pelvis. With the patient standing, he swallowed a barium tablet followed by water.He ingested effervescent crystals and then thick barium while in thelateral and AP positions while intermittent fluoroscopy and multipleimages obtained. Patient then placed in a horizontal position. Double contrast imagingperformed of the stomach and duodenum in LPO, supine, RPO, and RAOpositions. In the SHELL position, patient ingested thin barium while intermittentfluoroscopy and multiple images obtained of the esophagus, stomach, andduodenum. Initiation of small bowel portion of the study. Patient ingested theremaining thin barium. Images of the abdomen and pelvis obtained at 20minutes, 40 minutes, 60 minutes, 90 minutes, and 120 minutes from the timethe patient started to ingest barium for the upper GI portion of thestudy. Fluoroscopy time: 1 minute 12 seconds. Radiation exposure: Total ED 35mGy, total DAP 489 dGycm2. DISCUSSION: Normal swallowing of barium tablet and fluid. No laryngeal penetration oraspiration. Barium tablet quickly passed to the stomach. Normal motility and distensibility of the esophagus. No apparentesophageal ulcer or erosion. No appreciable hiatal hernia with the patient upright but very smallintermittent sliding hiatal hernia noted when the patient was in ahorizontal position. No spontaneous gastroesophageal reflux when thepatient was upright but intermittent small volume gastroesophageal refluxwhen the patient was in a horizontal position. Normally distensible stomach with no apparent ulcer or erosion. Normalemptying from the stomach into the duodenum. Normal duodenal distensionwith no apparent ulcer or erosion. On coffee shop manager images of the abdomen and pelvis, mild colonic stool. Theligament of Treitz is in normal position but the jejunal loops areprimarily in the right abdomen and in the pelvis. No apparent foldthickening or dilation of jejunal loops. Contrast had progressed into theproximal ileum at 20 minutes. At 40 minutes, contrast had progressed atleast to the mid ileum. At 60 minutes, contrast is to the distal ileum.Distal ileal loops have crossed from the left abdomen to the right lowerabdomen. At 90 minutes, contrast has advanced into the cecum and ascendingcolon with decreasing contrast in jejunal loops and proximal ileal loops.At 120 minutes, contrast has advanced to the descending colon. Mild stoolin the ascending colon, transverse colon and visualized proximaldescending colon. Small volume contrast remaining within the jejunum andhas also substantially decreased within ileal loops. No particularlydilated jejunal or ileal loops 2 suggest small bowel obstruction. Noapparent fold thickening to suggest enteritis. IMPRESSION: Normal swallowing mechanism. Normal esophageal motility and distensibilitywith no apparent esophagitis. No hiatal hernia or reflux when the patientwas upright but small intermittent hiatal hernia and small volumegastroesophageal reflux occurred with the patient in a horizontalposition. Normally distensible stomach with no apparent ulcer. Normalpassage of fluid from the stomach into the duodenum and jejunum. Noduodenal ulcer or diverticulum. Ligament of Treitz in normal position.Small bowel malrotation with majority of the jejunum in the right abdomenand in the pelvis and majority of the ileum in the left abdomen and in thepelvis. Distal ileum crosses to the cecum in the right lower quadrantabdomen. No small bowel obstruction or appreciable inflammation. Smallbowel transit time of less than 90 minutes. Ordered By: EMY ZAMAN Interpreted By: Ildefonso Borden, 05/23/2025 3:27 PM Emy Zaman AUTO TECHNICIAN-BC FLUOROSCOPY Final R esult from Last 3 Months Insurance [facility] [place] [address] Care Teams Diesel Power Shovel Operator Relationship Specialty Start Date End Date Bruce Mason DO [address] [facility] [address] [place] [address] PCP - General INTERNAL MEDICINE 03/29/18
--- OUTSIDE RECORDS SUMMARY | 2025-06-03 14:34 | XMS_ITS | Encounter Summary ---
Author Organization [facility] Address [address] [place] [address] Care Team Providers Care Usability Architect Name Role Phone Arianna Nichole MD Unavailable Bruce Mason DO Primary Care Provider [phone] Reason for Visit * Reason Onset Date Comments Reschedule Appointment 07/27/2024 Encounter Details Date Type Department Care Team (Late st Contact Info) Description 07/27/2024 Telephone [facility] - Pulmonology [address] [place] [address], [place] [address] Tereza Gooden MD [address] [place] [address] OF PULMONARY/[place] [address] Reschedule Appointment Social History Tobacco Use Types Packs/Day Years Used Date Smoking Tobacco: Every Day Cigarettes 2 45.6 Started: 10/23/1979 Cigars Started: 2014 Smokeless Tobacco: Never Alcohol Use Standard Drinks/Week Comments Not Currently 0 (1 standard drink = 0.6 oz pur e alcohol) PHQ-2 Answer Date Recorded Patient Health Questionnaire-2 Score 0 08/03/2023 Sex and Gender Information Value Date Recorded Sex Assigned at Not on file Legal Sex Male 5:42 PM CABLE TESTERS HELPER Gender Identity Not on file Sexual Orientation Not on file documented as of this encounter Functional Status * Is person deaf or have serious hearing difficulty? Answer Date of Assessment Author No 06/18/2020 4:38 PM CABLE TESTERS HELPER Shira, Sa mantha, FASHION DIRECTOR-WATERWAY TRAFFIC CHECKER * Is person blind or have serious difficulty seeing? Answer Date of Assessment Author No 06/18/2020 4:38 PM CABLE TESTERS HELPER Shira, Sa mantha, FASHION DIRECTOR-WATERWAY TRAFFIC CHECKER * Does person have serious difficulty walking/climbing stairs? Answer Date of Assessment Author No 06/18/2020 4:38 PM CABLE TESTERS HELPER Shira, Sa mantha, FASHION DIRECTOR-WATERWAY TRAFFIC CHECKER * Does person have difficulty dressing/bathing? Answer Date of Assessment Author No 06/18/2020 4:38 PM CABLE TESTERS HELPER Shira, Sa mantha, FASHION DIRECTOR-WATERWAY TRAFFIC CHECKER * Does person have difficulty doing errands alone? Answer Date of Assessment Author Yes 06/18/2020 4:38 PM CABLE TESTERS HELPER Shira, Sa mantha, FASHION DIRECTOR-WATERWAY TRAFFIC CHECKER documented as of this encounter Mental Status * Does person have difficulty concentrating/remembering/making decisions? Answer Entry Date Author Yes 06/18/2020 4:38 PM CABLE TESTERS HELPER Shira, Sa mantha, FASHION DIRECTOR-WATERWAY TRAFFIC CHECKER documented in this encounter Miscellaneous Notes * [...] other scheduled appointments Patient Call Back number: [phone] E TESTERS HELPER documented in this encounter Plan of Treatment Upcoming Encounters Date Type Department Care Team (Late st Contact Info) Description 07/03/2025 8:30 AM CABLE TESTERS HELPER Office Visit [facility] - Pulmonology [address], [facility] [address] [place] [address] Tereza Gooden MD [address] DIV OF PULMONARY/[place] [address] 07/04/2025 2:15 AM CABLE TESTERS HELPER Clinical Support [facility] - Cardiology [address], [facility] [address] [place] [address] 08/01/2025 11:30 AM CABLE TESTERS HELPER [facility] General Dermatology [address], [address] [phone] Rich Mehta PAJumaC [address] [phone] 08/08/2025 4:00 AM CABLE TESTERS HELPER [facility] Card[facility] [address], [address] [address] 09/05/2025 9:00 AM CDT Office Visit [facility] - Neurology [address] [facility], [facility] [place] [id number] Brisa Blanchard PA-C [address] [place] [address] 09/12/2025 4:00 AM CDT Clinical Support [facility] - Cardiology [address], [address] [address] 10/17/2025 4:00 AM CDT Clinical Support [facility] - Cardiology [address], [address] [address] 11/21/2025 4:00 AM CDT Clinical Support [facility] - Cardiology [address], [address] [phone] 12/26/2025 3:15 AM CDT Clinical Support [facility] - Cardiology [address], [address] [address] documented as of this encounter Visit Diagnoses Not on filedocumented in this encounter Additional Health Concerns Infection Onset Date Last Indicated Resolved Time COVID-19 Under Investigation 04/17/2025 04/17/2025 04/17/2025 8:06 PM CABLE TESTERS HELPER documented as of this encounter Care Teams Usability Architect Relationship Specialty Start Date End Date Bruce Mason DO [address] [place] [address] PCP - General Internal Medicine 06/27/24 Arianna Nichole MD [address] OF [facility] [place] [phone] Physician Internal Medicine 04/10/24 documented as of this encounter
--- OUTSIDE RECORDS SUMMARY | 2025-06-03 14:34 | XMS_ITS | Clinical Summary ---
Author Organization [facility] Address [address] [place] [address] Care Team Providers Care Device Processing Engineer Name Role Phone Arianna Nichole MD Unavailable [phone] Bruce Mason DO Primary Care Provider [phone] Source Comments [facility],non-owned Affiliates and Associated Physician Practices is amultiple site organization consisting of ambulatory clinics and hospital sitesin [place], [place], [place]. This disclosure is being madepursuant to the Care Everywhere program and may not contain all information available regarding this patient. Last updated 18.[facility] Allergies Active Allergy Reactions Criticality Noted Date [...] (HCC) Take 1 (one) tablet by mouth 2 [...] Active Varenicline Tartrate, Starter, (Chantix Starting Month Scot) 0.5 MG X 11 & 1 MG X 42 tabletsIndicatio ns:Tobacco abuse FOLLOW PACKAGE DIRECTIONS 53 tablet 5 Active levETIRAcetam CR 24hr (Keppra XR) 500 MG tablet Take 2 (two) tablets by mouth at bedtime 180 tablet 3 5 Active varenicline (Chantix) 1 MG tabletIndication s:Smoking Cessation Therapy Take 1 (one) tablet by mouth 2 times daily Reasons: Treatment to Stop Smoking 60 tablet 3 5 Active Active Problems Problem Noted Date Diagnosed Date Severe protein-calorie malnu trition (Marquez: less than 60% of standard weight) 04/18/2025 Assessment & Plan (04/18/2025 10:50 AM CLINICAL RESEARCH NURSE COORDINATOR): - Possibly related to prior hx of stroke as patient has hx of multiple prior strokes - However given acute onset, will first order CTH to evaluate for subacute stroke - ST ordered to evaluate dysphagia - Consider evaluation for malignancy as a cause of symptoms given significant hx of tobacco use -Nutrition consult: appreciate recs Hypomagnesemia 04/18/2025 Assessment & Plan (04/18/2025 10:50 AM CLINICAL RESEARCH NURSE COORDINATOR): Replete as needed Trend Mag RICK (acute kidney injury) 04/17/2025 Assessment & Plan (04/18/2025 10:50 AM CLINICAL RESEARCH NURSE COORDINATOR): - Likely pre-renal in setting of dysphagia and recent weight loss - Cr 1.42 w/ bl around 0.8 - s/p 2L LR Plan: - maintenance fluids - monitor Cr - Consider urine lytes if no improvement with fluid challenge - I/Os Assessment & Plan (04/17/2025 11:44 PM CLINICAL RESEARCH NURSE COORDINATOR): - Likely pre-renal in setting of dysphagia and recent weight loss - Cr 1.42 w/ bl around 0.8 - s/p 2L LR Plan: - maintenance fluids - monitor Cr - Consider urine lytes if no improvement with fluid challenge - I/Os Dysphagia 04/17/2025 Assessment & Plan (04/18/2025 10:50 AM CLINICAL RESEARCH NURSE COORDINATOR): - Possibly related to prior hx of stroke as patient has hx of multiple prior strokes - However given acute onset, will first order CTH to evaluate for subacute stroke - ST ordered to evaluate dysphagia - Consider evaluation for malignancy as a cause of symptoms given significant hx of tobacco use -Nutrition consult: appreciate recs Assessment & Plan (04/17/2025 11:46 PM CLINICAL RESEARCH NURSE COORDINATOR): - Possibly related to prior hx of stroke as patient has hx of multiple prior strokes - However given acute onset, will first order CTH to evaluate for subacute stroke - ST ordered to evaluate dysphagia - Consider evaluation for malignancy as a cause of symptoms given significant hx of tobacco use Weight loss 04/17/2025 Assessment & Plan (04/18/2025 10:50 AM CLINICAL RESEARCH NURSE COORDINATOR): - Possibly related to prior hx of stroke as patient has hx of multiple prior strokes - However given acute onset, will first order CTH to evaluate for subacute stroke - ST ordered to evaluate dysphagia - Consider evaluation for malignancy as a cause of symptoms given significant hx of tobacco use -Nutrition consult: appreciate recs Assessment & Plan (04/17/2025 11:46 PM CLINICAL RESEARCH NURSE COORDINATOR): - Possibly related to prior hx of stroke as patient has hx of multiple prior strokes - However given acute onset, will first order CTH to evaluate for subacute stroke - ST ordered to evaluate dysphagia - Consider evaluation for malignancy as a cause of symptoms given significant hx of tobacco use Seizure 04/17/2025 Assessment & Plan (04/18/2025 10:50 AM CLINICAL RESEARCH NURSE COORDINATOR): - Keppra XR not on formularly - Anshu order Keppra 500mg BID while inpatient Assessment & Plan (04/17/2025 11:44 PM CLINICAL RESEARCH NURSE COORDINATOR): - Keppra XR not on formularly - Anshu order Keppra 500mg BID while inpatient Psoriasis 04/17/2025 Assessment & Plan (04/18/2025 10:50 AM CLINICAL RESEARCH NURSE COORDINATOR): - Triamcinolone cream Assessment & Plan (04/17/2025 11:44 PM CLINICAL RESEARCH NURSE COORDINATOR): - Triamcinolone cream Family history of stroke 06/27/2024 Abnormal EKG 11/25/2023 History of multiple strokes 11/25/2023 Assessment & Plan (04/18/2025 10:50 AM CLINICAL RESEARCH NURSE COORDINATOR): - Continue home ASA, clopidogrel and Atorvastatin Assessment & Plan (04/17/2025 11:44 PM CLINICAL RESEARCH NURSE COORDINATOR): - Continue home ASA, clopidogrel and Atorvastatin Nicotine dependence 11/25/2023 Thrombocytopenia 11/25/2023 Altered mental status, unspe cified altered mental status type 08/02/2023 Diabetes mellitus with hyperglycemia 08/02/2023 Cigarette smoker 08/02/2023 Assessment & Plan (04/18/2025 10:50 AM CLINICAL RESEARCH NURSE COORDINATOR): - Nicotine patch ordered Assessment & Plan (04/17/2025 11:44 PM CLINICAL RESEARCH NURSE COORDINATOR): - Nicotine patch ordered Hyperlipidemia 06/26/2020 Assessment & Plan (04/18/2025 10:50 AM CLINICAL RESEARCH NURSE COORDINATOR): - Continue home ASA, clopidogrel and Atorvastatin Assessment & Plan (04/17/2025 11:44 PM CLINICAL RESEARCH NURSE COORDINATOR): - Continue home ASA, clopidogrel and Atorvastatin Hypertension 06/26/2020 Encounter for screening for cardiovascular disor ders 06/18/2020 Cerebrovascular accident (CVA) 06/15/2020 Occlusion and stenosis of bilateral carotid jonathan mar 05/16/2020 Abnormal cardiovascular stress test 02/04/2017 Other specified symptoms and signs involving the circulatory and respiratory systems 01/07/2017 Snoring 01/07/2017 Tobacco abuse 01/07/2017 Benign essential HTN 06/25/2016 Overview (06/27/2024): HTN (hypertension), benign Assessment & Plan (04/18/2025 10:50 AM CLINICAL RESEARCH NURSE COORDINATOR): Normotensive CTM Hemiplegia 06/25/2016 Overview (06/27/2024): CVA, old, hemiparesis Assessment & Plan (04/18/2025 10:50 AM CLINICAL RESEARCH NURSE COORDINATOR): - Continue home ASA, clopidogrel and Atorvastatin History of cardiovascular surgery 06/25/2016 Overview (06/27/2024): Status post placement of implantable loop recorder Obesity 06/25/2016 Overview (06/27/2024): Obesity, Class I, BMI 30.0-34.9 (see actual BMI) Type 2 diabetes mellitus 06/25/2016 Overview (06/27/2024): DM type 2 with diabetic dyslipidemia Assessment & Plan (04/18/2025 10:50 AM CLINICAL RESEARCH NURSE COORDINATOR): - Home meds: Metformin 1000 BID + glimepiride 2mg daily - SSI + AC Assessment & Plan (04/17/2025 11:44 PM CLINICAL RESEARCH NURSE COORDINATOR): - Home meds: Metformin 1000 BID + glimepiride 2mg daily - SSI + AC Resolved Problems Problem Noted Date Diagnosed Date Resolved Date Dehydration 04/17/2025 05/01/2025 Assessment & Plan (04/18/2025 10:50 AM CLINICAL RESEARCH NURSE COORDINATOR): - Likely pre-renal in setting of dysphagia and recent weight loss - Cr 1.42 w/ bl around 0.8 - s/p 2L LR Plan: - maintenance fluids - monitor Cr - Consider urine lytes if no improvement with fluid challenge - I/Os Assessment & Plan (04/17/2025 11:44 PM CLINICAL RESEARCH NURSE COORDINATOR): - Likely pre-renal in setting of dysphagia and recent weight loss - Cr 1.42 w/ bl around 0.8 - s/p 2L LR Plan: - maintenance fluids - monitor Cr - Consider urine lytes if no improvement with fluid challenge - I/Os Encounters Date Type Department Care Team Description 05/31/2025 1:00 AM CLINICAL RESEARCH NURSE COORDINATOR Clinical Support [facility] - Cardiology [address] [place] [address] Cerebrovascular accident (CVA), unspecified mechanism (HCC) ; Status post placement of implantable loop recorder 05/06/2025 Results Follow-Up [facility] - Pulmonology [facility] [place] [address] Tereza Gooden MD 04/30/2025 8:12 AM CLINICAL RESEARCH NURSE COORDINATOR - 04/30/2025 11:59 PM CLINICAL RESEARCH NURSE COORDINATOR Hospital Encounter [facility] [address] [place] [phone] Tereza Gooden MD Discharge Disposition: Home or Self Care 04/26/2025 Refill [facility] - Pulmonology [address] [place] [phone] Tereza Gooden MD MEDICATION REFILL 04/24/2025 Telephone [facility] - Centralized Scheduling [address] [place], [place] [phone] Tereza Gooden MD Reschedule Appointment 04/23/2025 Telephone [facility] - Centralized Scheduling [address] [place] [phone] Tereza Gooden MD Reschedule Appointment 04/23/2025 Home Care Visit [facility] Health at Home Home Health [address] [place], [place] [address], [facility] [address] [place] [address] Edel Phillip, RN HOME CONNETIONS NON-ADMIT 04/22/2025 Home Care Visit [facility] Health at Home Home Health [address] [place], [place] [address], [address] [place] [address] Edel Phillip, RN TELEPHONE ENCOUNTER 04/21/2025 Home Care Visit [facility] [address] [address] [place] [address] Katrina Duenas RN TELEPHONE ENCOUNTER 04/20/2025 Home Care Visit [facility] [address] [address] [place] [address] Katrina Duenas, EUSEBIO TELEPHONE ENCOUNTER 04/17/2025 3:07 PM CLINICAL RESEARCH NURSE COORDINATOR - 04/19/2025 1:50 PM CLINICAL RESEARCH NURSE COORDINATOR Hospital Encounter [facility] ACUTE [address] [place] [phone] Anton Gu MD Purdy, Justin, MD Morreale, Ke Britt III, MD Emergency Medicine Discharge Disposition: Home or Self Care 04/17/2025 Travel 03/07/2025 11:00 AM CDT Office Visit [facility] - Neurology [address] [facility] [place] [phone] Brisa Blanchard PA-C Seizures (HCC) (Primary Dx) 03/07/2025 Travel from Last 3 Months Immunizations Immunization [...] Recorded Patient Health Questionnaire-2 Score 0 08/03/2023 AUDIT-C Answer Date Recorded Q1: How often do you have a drink containing alcohol? Never 04/17/2025 Q2: How many drinks containi ng alcohol do you have on a typical day when you are drinking? Patient does not drink Q3: How often do you have si x or more drinks on one occasion? Never 04/17/2025 Overall Financial Resource Strain (CARDIA) Answe r Date Recorded How hard is it for you to pa y for the very basics like food, housing, medical care, and heating? Not hard at all 04/17/2025 [facility] Occupat ional Health - Occupational Stress Questionnaire Answer Date Recorded Do you feel stress - tense, restless, nervous, or anxious, or unable to sleep at night because your mind is troubled all the time - these days? Not at all 04/17/2025 Hunger Vital Sign Answer Date Recorded Worried About Running Out of Food in the Last Ye ar Never true 04/17/2025 Within the past 12 months, t he food you bought just didn't last and you didn't have money to get more. Never true 04/17/2025 PRAPARE - Transportation Answer Date Re corded In the past 12 months, has l ack of transportation kept you from medical appointments or from getting medications? No 04/06 In the past 12 months, has l ack of transportation kept you from meetings, work, or from getting things needed for daily living? No 04/17/2025 Housing Stability Vital Sign Answer Javier e Recorded In the last 12 months, was t here a time when you were not able to pay the mortgage or rent on time? No 04/17/2025 In the past 12 months, how m any times have you moved where you were living? 0 04/17/2025 At any time in the past [address] [facility], were you homeless or living in a usp (including now)? No 04/17/2025 Sex and Gender Information Value Date Recorded Sex Assigned at Not on file Legal Sex Male 5:42 PM CLINICAL RESEARCH NURSE COORDINATOR Gender Identity Not on file Sexual Orientation Not on file Last Filed Vital Signs Vital Sign Reading Time Taken Comments Blood Pressure 115/66 04/19/2025 11:07 AM CLINICAL RESEARCH NURSE COORDINATOR Pulse 55 04/19/2025 11:07 AM CLINICAL RESEARCH NURSE COORDINATOR Temperature 36.2 C (97.1 F) 04/19/2025 11:07 AM CLINICAL RESEARCH NURSE COORDINATOR Respiratory Rate 18 04/19/2025 11:07 AM CLINICAL RESEARCH NURSE COORDINATOR Oxygen Saturation 100% 04/19/2025 11:07 AM CLINICAL RESEARCH NURSE COORDINATOR Inhaled Oxygen Concentration - - Weight 98.7 kg (217 lb 9.8 oz) 04/18/2025 3:40 A M CLINICAL RESEARCH NURSE COORDINATOR Height 188 cm (6' 2.02) 04/18/2025 3:40 AM CLINICAL RESEARCH NURSE COORDINATOR Body Mass Index 27.93 04/18/2025 3:40 AM CLINICAL RESEARCH NURSE COORDINATOR Plan of Treatment Upcoming Encounters Date Type Department Care Team (Late st Contact Info) Description 07/03/2025 8:30 AM CLINICAL RESEARCH NURSE COORDINATOR Office Visit [facility] - Pulmonology [address], [address] [place] [phone] Tereza Gooden MD [facility] OF PULMONARY/[place] [phone] 07/04/2025 2:15 AM CLINICAL RESEARCH NURSE COORDINATOR Clinical Support [facility] - Cardiology [address], [address] [address] 08/01/2025 11:30 AM CLINICAL RESEARCH NURSE COORDINATOR Office Visit [facility] - General Dermatology [address], [facility] [address] [place] [phone] Rich Mehta PA-C [address] [facility] [address] [place] [phone] 08/08/2025 4:00 AM CLINICAL RESEARCH NURSE COORDINATOR Clinical Support [facility] - Cardiology [address], [address] [address] 09/05/2025 9:00 AM CDT Office Visit [facility] - Neurology [address] [facility] [place] [address] Brisa Blanchard PA-C [address] [place] [address] 09/12/2025 4:00 AM CDT Clinical Support [facility] - Cardiology [address] [facility], [address] [phone] 10/17/2025 4:00 AM CDT Clinical Support [facility] - Cardiology [address], [address] [address] 11/21/2025 4:00 AM CDT Clinical Support [facility] - Cardiology [address], [address] [address] 12/26/2025 3:15 AM CDT Clinical Support [facility] - Cardiology [address] [facility], [facility] [address] [place] [address] Health Maintenance Due Date Last Done Comments [...] SCREENING 08/02/2023 DIABETES-FOOT EXAM WITH MONOFILAMENT 08/02/2023 DEPRESSION SCREENING 06/06/2024 08/01/2023 DIABETES - URINE PROTEIN SCREENING 06/06/2024 MEDICARE AWV CALENDAR YEAR 2024 COVID-19 VACCINE ( season) 2025 06/22/2021, 09/23/2020, 08/27/2020, Additional history exists INFLUENZA VACCINE (#1) 2025 DIABETES-HGB A1C 10/16/2025 04/18/2025, , 06/16/2020 DIABETES-SERUM CREATININE 04/19/20262024, 04/18/2025, 04/17/2025, Additional history exists LUNG CANCER SCREENING 04/30/2026 04/30/2025, 024 DTAP/TDAP/TD VACCINES (2 - Td or Tdap) [...] this topic Medical Devices Implanted Type Area Dice Spotter Device Identifier Shelf Expiration Date Model / Serial / Lot Sys Crd Mntr Rvl Linq [employer] Ins - [id number] Implanted:Qty: 1 on 06/18/2020 by Victor Manuel Alvarado MD at [facility] [employer] 03/03/2021 LINQSYS / [id number] / Description:[employer] Pativeronique nt Monitor Model [id number] Rcdr Crd Linq Ii Ins - [id number] Implanted:Qty: 1 on 08/03/2023 by Yarely Doherty MD at [facility] [employer] [id number] 09/21/2024 LNQ22 / [id number] / [id number] 2 Procedures Procedure Name Priority Date/Time Associated Diagnosis Comments AK REM INTERROG SCRMS <30 D PHYS/QHP Routine 06/02/2025 8:00 AM CLINICAL RESEARCH NURSE COORDINATOR Cerebrovascular accident (CVA), unspecified mechanism (HCC) Status post placement of implantable loop recorder CT LUNG SCREEN LOW DOSE Routine 04/30/2025 8:34 AM CLINICAL RESEARCH NURSE COORDINATOR Tobacco abuse GLUCOSE - POINT OF CARE Routine 04/19/2025 11:03 AM CLINICAL RESEARCH NURSE COORDINATOR COMPREHENSIVE METABOLIC PANEL AM Draw 04/19/2025 8:37 AM CLINICAL RESEARCH NURSE COORDINATOR MAGNESIUM BLOOD Routine 04/19/2025 8:37 AM CLINICAL RESEARCH NURSE COORDINATOR PHOSPHORUS BLOOD Routine 04/19/2025 8:37 AM CLINICAL RESEARCH NURSE COORDINATOR CBC W/O DIFFERENTIAL AM Draw 04/19/2025 8:37 AM CLINICAL RESEARCH NURSE COORDINATOR GLUCOSE - POINT OF CARE Routine 04/19/2025 7:17 AM CLINICAL RESEARCH NURSE COORDINATOR GLUCOSE - POINT OF CARE Routine 04/18/2025 8:20 PM CLINICAL RESEARCH NURSE COORDINATOR GLUCOSE - POINT OF CARE Routine 04/18/2025 4:21 PM CLINICAL RESEARCH NURSE COORDINATOR GLUCOSE - POINT OF CARE Routine 04/18/2025 10:49 AM CLINICAL RESEARCH NURSE COORDINATOR HEMOGLOBIN A1C Routine 04/18/2025 8:32 AM CLINICAL RESEARCH NURSE COORDINATOR COMPREHENSIVE METABOLIC PANEL AM Draw 04/18/2025 8:32 AM CLINICAL RESEARCH NURSE COORDINATOR MAGNESIUM BLOOD Routine 04/18/2025 8:32 AM CLINICAL RESEARCH NURSE COORDINATOR PHOSPHORUS BLOOD Routine 04/18/2025 8:32 AM CLINICAL RESEARCH NURSE COORDINATOR CBC W/O DIFFERENTIAL AM Draw 04/18/2025 8:32 AM CLINICAL RESEARCH NURSE COORDINATOR GLUCOSE - POINT OF CARE Routine 04/18/2025 7:37 AM CLINICAL RESEARCH NURSE COORDINATOR GLUCOSE - POINT OF CARE Routine 04/17/2025 11:53 PM CLINICAL RESEARCH NURSE COORDINATOR CT HEAD WO CONTRAST STAT 04/17/2025 1 1:31 PM CLINICAL RESEARCH NURSE COORDINATOR Dysphagia, unspecified type PT EVAL AND TREAT Routine 04/17/2025 8:0 6 PM CLINICAL RESEARCH NURSE COORDINATOR OT EVAL AND TREAT Routine 04/17/2025 8:0 6 PM CLINICAL RESEARCH NURSE COORDINATOR SARS-COV-2 (COVID-19) RAPID STAT 04/17/2025 7:21 PM CLINICAL RESEARCH NURSE COORDINATOR XR CHEST 2VW STAT 04/17/2025 5:15 PM CLINICAL RESEARCH NURSE COORDINATOR RICK (acute kidney injury) CK BLOOD STAT 04/17/2025 4:21 PM CLINICAL RESEARCH NURSE COORDINATOR PHOSPHORUS BLOOD STAT 04/17/2025 4:21 PM CLINICAL RESEARCH NURSE COORDINATOR MAGNESIUM BLOOD STAT 04/17/2025 4:21 PM CLINICAL RESEARCH NURSE COORDINATOR COMPREHENSIVE METABOLIC PANEL STAT 04/17/2025 4:21 PM CLINICAL RESEARCH NURSE COORDINATOR CBC W AUTO DIFFERENTIAL STAT 04/17/2025 4:21 PM CLINICAL RESEARCH NURSE COORDINATOR from Last 3 Months Results * AK REM INTERROG SCRMS <30 D PHYS/QHP (06/02/2025 8:00 AM CLINICAL RESEARCH NURSE COORDINATOR) Narrative Victor Manuel Alvarado MD - 06/02/2025 8:00 AM CLINICAL RESEARCH NURSE COORDINATOR Victor Manuel Alvarado MD 06/02/2025 8:00 AM Dear Gabino Husain, I reviewed the remote interrogation of your loop recorder. Your device's sensing is appropriate and stable. During this most recent monitored period ending on 05/28/2025 your atrial fibrillation/tachycardia burden was 0% and you had no significant arrhythmias. Device function is normal, no programming changes are required, and no medications will need to be changed. Please call our offices if you have any further questions. Sincerely, Victor Manuel Alvarado 06/02/2025 Victor Manuel Alvarado MD PROCEDURE/MINOR SURGICAL ORDERAB LES Final Result * CT Lung Screen Low Dose (04/30/2025 8:34 AM CLINICAL RESEARCH NURSE COORDINATOR) Anatomical Region Laterality Modality Chest Computed Tomogra phy 04/30/2025 8:46 AM CLINICAL RESEARCH NURSE COORDINATOR Narrative 04/30/2025 12:46 PM CLINICAL RESEARCH NURSE COORDINATOR PROCEDURE: CT LUNG SCREEN LOW DOSE DATE/TIME OF EXAM: 04/30/2025 8:36 AM CLINICAL INFORMATION: None relevant/not provided if blank. Indication: Z72.0: Tobacco abuse Additional History: COMPARISON: CT lung screening 04/17/2024 TECHNIQUE: CT of the chest was performed without intravenous contrast utilizing low dose protocol. CT dose reduction technique was used, including Automated Exposure Control. FINDINGS: Central tracheobronchial tree: Clear. Lungs: There is redemonstration of a 11 x 8 mm pulmonary nodule in the left upper lobe that is stable in size compared to prior examination on 04/17/2024 (series 6 image 45). There is a 4 mm pulmonary nodule in the left lower lung base that is stable in size compared to prior exam (series 6 image 147). Pleura: No significant pleural effusion. No pneumothorax. Heart: Heart is not enlarged. No significant pericardial effusion. Atherosclerotic calcification of coronary artery. Loop recorder in the left chest. Megan/mediastinum: No abnormally enlarged hilar or mediastinal lymph nodes by noncontrast technique. Bones: No significant osseous changes. Degenerative disease of the spine. Upper abdomen: Cholelithiasis without gallbladder wall thickening. No abnormality in the remaining visualized upper abdomen organs. ASSESSMENT: Lung-RADS 2: Benign appearance or behavior. RECOMMENDATION: Follow up LDCT in 1 year. ACR Lung-RADS Category/Recommendations: 0: Need prior comparisons [...] suspicious findings Modifier-S: Significant NON-lung cancer findings For details of the ACR Lung-RADS program, categories and recommendations: 1) https://www.acr.org/Quality-Safety/Resources/LungRADS 2) Internet search: Lung-RADS Lung Cancer Screening 3) Contact [facility] thoracic nurse coordinator ([phone]) Report dictated by Kendall Alejandra MD (Spares Scheduler) > Dictated by Kendall Alejandra Dr 04/30/2025 8:46 AM > Dictated by Spares Scheduler IDoreen have personally reviewed and interpreted this examination/study. > Interpreting Provider: Doreen Longoria on 04/30/2025 12:46 PM Procedure Note Doreen Sheppard MD - 04/30/2025 PROCEDURE: CT LUNG SCREEN LOW DOSE DATE/TIME OF EXAM: 04/30/2025 8:36 AM CLINICAL INFORMATION: None relevant/not provided if blank. Indication: Z72.0: Tobacco abuse Additional History: COMPARISON: CT lung screening 04/17/2024 TECHNIQUE: CT of the chest was performed without intravenous contrast utilizing low dose protocol. CT dose reduction technique was used, including Automated ExposureControl. FINDINGS: Central tracheobronchial tree: Clear. Lungs: There is redemonstration of a 11 x 8 mm pulmonary nodule in theleft upper lobe that is stable in size compared to prior examination on 04/17/2024 (series 6 image 45). There is a 4 mm pulmonary nodule in the left lower lung base that isstable in size compared to prior exam (series 6 image 147). Pleura: No significant pleural effusion. No pneumothorax. Heart: Heart is not enlarged. No significant pericardial effusion. Atherosclerotic calcification of coronary artery. Loop recorder in theleft chest. Megan/mediastinum: No abnormally enlarged hilar or mediastinal lymphnodes by noncontrast technique. Bones: No significant osseous changes. Degenerative disease of thespine. Upper abdomen: Cholelithiasis without gallbladder wall thickening. No abnormality in the remaining visualized upper abdomen organs. ASSESSMENT: Lung-RADS 2: Benign appearance or behavior. RECOMMENDATION: Follow up LDCT in 1 year. ACR Lung-RADS Category/Recommendations: 0: Need prior comparisons [...] suspicious findings Modifier-S: Significant NON-lung cancer findings For details of the ACR Lung-RADS program, categories andrecommendations: 1) https://www.acr.org/Quality-Safety/Resources/LungRADS 2) Internet search: Lung-RADS Lung Cancer Screening 3) Contact [facility] thoracic nurse coordinator ([phone]) Report dictated by Kendall Alejandra MD (Spares Scheduler) > Dictated by Kendall Alejandra Dr 04/30/2025 8:46 AM > Dictated by Spares Scheduler IDoreen have personally reviewed and interpreted this examination/study. > Interpreting Provider: Doreen Longoria on 04/30/2025 12:46 PM Tereza Gooden MD CT ORDERABLES Final Result * (ABNORMAL) GLUCOSE - POINT OF CARE (04/19/2025 11:03 AM CLINICAL RESEARCH NURSE COORDINATOR) Only the most recent of7 resultswithin the time period is included. Pathologist [facility] Glucose WB/POC 172(H) 70 - 99 mg/dL 04/19/2025 11:08 AM [facility] Specimen Type Arterial/C apillary 04/19/2025 11:08 AM [facility] Blood BLOOD SPECIMEN / Unknown 04/19/2025 11:03 AM CLINICAL RESEARCH NURSE COORDINATOR 04/19/2025 11:08 AM CLINICAL RESEARCH NURSE COORDINATOR us Ke Colon III, MD LAB - POINT OF CARE ORD ERABLES Final Result [facility] [address] [place] [address], [facility] [phone] * (ABNORMAL) CBC W/O DIFFERENTIAL (04/19/2025 8:37 AM [facility]) Only the most recent of2 resultswithin the time period is included. Pathologist [facility] WBC 4.2 4.0 - 10.7 x10E9/L 04/19/2025 9:17 AM [facility] RBC Count 4.36 4.30 - 5.80 x10E12/L 04/19/2025 9:17 AM [facility] Hemoglobin 12.4(L) 13.3 - 17.5 g/dL 04/19/2025 9:17 AM [facility] Hematocrit 36.7(L) 38.7 - 51.1 % 04/19/2025 9:17 AM [facility] MCV 84.2 80.0 - 98.0 fL 04/19/2025 9:17 AM [facility] MCH 28.4 26.7 - 33.6 pg 04/19/2025 9:17 AM [facility] MCHC 33.8 31.7 - 36.3 g/dL 04/19/2025 9:17 AM [facility] RDW-CV 13.5 11.3 - 14.8 % 04/19/2025 9:17 AM [facility] Platelet Count 129(L) 150 - 420 x10E9/L 04/19/2025 9:17 AM [facility] MPV 9.1 7.8 - 11.4 fL 04/19/2025 9:17 AM [facility] Blood BLOOD SPECIMEN / Unknown Lab Venipuncture / Unknown 04/19/2025 8:37 AM CLINICAL RESEARCH NURSE COORDINATOR 04/19/2025 9:02 AM CLINICAL RESEARCH NURSE COORDINATOR us Dusty Hickey MD LAB - HEMATOLOGY ORDERABLES F inal Result [facility] [address] [place] [address], [facility] [phone] * (ABNORMAL) COMPREHENSIVE METABOLIC PANEL (04/19/2025 8:37 AM CLINICAL RESEARCH NURSE COORDINATOR) Only the most recent of3 resultswithin the time period is included. BUN 21 7 - 26 mg/dL 04/19/2025 9:59 AM [facility] Creatinine 0.83 0.71 - 1.16 mg/dL 04/19/2025 9:59 AM [facility] Sodium 139 136 - 145 mmol/L 04/19/2025 9:59 AM [facility] Potassium 3.7 3.5 - 4.5 mmol/L 04/19/2025 9:59 AM [facility] Chloride 107 98 - 107 mmol/L 04/19/2025 9:59 AM [facility] CO2 24 22 - 29 mmol/L 04/19/2025 9:59 AM [facility] Glucose 142(H) 70 - 99 mg/dL 04/19/2025 9:59 AM [facility] Calcium 8.4 8.4 - 10.2 mg/dL 04/19/2025 9:59 AM [facility] Protein Total 5.6(L) 6.0 - 8.3 g/dL 04/19/2025 9:59 AM [facility] Albumin 3.5 3.4 - 5.0 g/dL 04/19/2025 9:59 AM [facility] Bilirubin Total 0.5 0.2 - 1.2 mg/dL 04/19/2025 9:59 AM [facility] Alkaline Phosphatase 82 40 - 150 U/L 04/19/2025 9:59 AM [facility] ALT 8 5 - 55 U/L 04/19/2025 9:59 AM [facility] AST 9 5 - 34 U/L 04/19/2025 9:59 AM [facility] Anion Gap 8 6 - 16 04/19/2025 9:59 AM [facility] BUN/Creatinine Ratio 25(H) 7 - 23 04/19/2025 9:59 AM [facility] Osmolality Calculated 293 275 - 295 mOsm/kg 04/19/2025 9:59 AM [facility] Albumin/Globulin Ratio 1.7 1.1 - 2.3 04/19/2025 9:59 AM [facility] eGFR by CKD-EPI >90 >=90 mL/min/1.7 3 m2 04/19/2025 9:59 AM [facility] Comment:Estimated Glomerular Filtration Rate (eGFR) calculated using the CKD-EPI Creatinine Equation (2020), per the National Kidney Foundation and [place] Society of Nephrology recommendations. Blood BLOOD SPECIMEN / Unknown Lab Venipuncture / Unknown 04/19/2025 8:37 AM CLINICAL RESEARCH NURSE COORDINATOR 04/19/2025 9:02 AM CLINICAL RESEARCH NURSE COORDINATOR Dusty Hickey MD LAB - CHEMISTRY ORDERABLES Fi nal Result [address] [address], [facility] [phone] * PHOSPHORUS BLOOD (04/19/2025 8:37 AM CLINICAL RESEARCH NURSE COORDINATOR) Only the most recent of3 resultswithin the time period is included. Phosphorus 2.9 2.8 - 5.1 mg/dL 04/19/2025 9:59 AM [facility] Blood BLOOD SPECIMEN / Unknown Lab Venipuncture / Unknown 04/19/2025 8:37 AM CLINICAL RESEARCH NURSE COORDINATOR 04/19/2025 9:02 AM CLINICAL RESEARCH NURSE COORDINATOR Dusty Hickey MD LAB - CHEMISTRY ORDERABLES Fi nal Result [address] [address], [place] [phone] * MAGNESIUM BLOOD (04/19/2025 8:37 AM [facility]) Only the most recent of3 resultswithin the time period is included. Magnesium 1.8 1.6 - 2.6 mg/dL 04/19/2025 9:59 AM [facility] Blood BLOOD SPECIMEN / Unknown Lab Venipuncture / Unknown 04/19/2025 8:37 AM CLINICAL RESEARCH NURSE COORDINATOR 04/19/2025 9:02 AM CLINICAL RESEARCH NURSE COORDINATOR Dusty Hickey MD LAB - CHEMISTRY ORDERABLES Fi nal Result Performing Organization Address City/[facility]/ZIP Co de Phone Number [address] [address], [facility] [phone] * HEMOGLOBIN A1C (04/18/2025 8:32 AM CLINICAL RESEARCH NURSE COORDINATOR) Hemoglobin A1c 5.3 <=5.6 % 04/18/2025 9:26 AM [facility] Estimated Average Glucose 105 mg/dL 04/18/2025 9:26 AM [facility] Comment: HbA1c Interpretation: Normal : < 5.7% Pre-diabetes: 5.7-6.4% Diabetes: Equal to or greater than 6.5% Test results diagnostic of diabetes should be repeated for confirmation. Treatment target values recommended by ADA and other clinical organizations should be used to evaluate metabolic control in patients. Reference: [place] Diabetes Association, Standards of Care in Diabetes -2020 In patients 70 years and older consider HbA1c target range of 7.0-7.5% (Reference: Dany Gorman et al. JAMDA. 2012) The Sebia assay for the measurement of HbA1c is a National Glycohemoglobin Standardization Program (NGSP) certified method. Blood BLOOD SPECIMEN / Unknown Lab Venipuncture / Unknown 04/18/2025 8:32 AM CLINICAL RESEARCH NURSE COORDINATOR 04/18/2025 8:40 AM CLINICAL RESEARCH NURSE COORDINATOR Dusty Hickey MD LAB - CHEMISTRY ORDERABLES Fi nal Result [address] [address], [place] [phone] * CT Head Wo Contrast (04/17/2025 11:31 PM CLINICAL RESEARCH NURSE COORDINATOR) Anatomical Region Laterality Modality Head Computed Tomogra phy 04/17/2025 11:3 4 PM CLINICAL RESEARCH NURSE COORDINATOR Impressions 04/18/2025 12:19 AM CLINICAL RESEARCH NURSE COORDINATOR IMPRESSION: 1.No acute intracranial hemorrhage, territorial infarct, or herniation. 2.Chronic infarcts and small vessel ischemic disease as detailed above. > Dictated by Naomi Hogan MD, (radiology asst). > Dictated by Naomi Hogan MD 04/17/2025 11:34 PM > Dictated by Spares Scheduler I, Jovon Ramirez MD have personally reviewed and interpreted this examination/study. > Interpreting Provider: Jovon Ramirez MD on 04/18/2025 12:19 AM Narrative 04/18/2025 12:19 AM CLINICAL RESEARCH NURSE COORDINATOR PROCEDURE: CT HEAD WO CONTRAST, DATE/TIME OF EXAM: 04/17/2025 11:31 PM, LOCATION [facility] INDICATION: R13.10: Dysphagia, unspecified type ADDITIONAL CLINICAL INFORMATION: Ordering Provider Reason For Exam: eval for cause of dysphagia; has hx of prior strokes Technologist Note: Additional: TECHNIQUE: CT of the head was performed without contrast according to standard protocol. COMPARISON: No prior study is available for comparison at the time of this dictation. FINDINGS: No acute intracranial hemorrhage or intra- or extra-axial fluid collections are identified. There is mild cerebral volume loss with associated ex vacuo ventricular dilatation. The basal cisterns are patent. No mass effect or midline shift is seen. Chronic infarcts in the bilateral occipital lobes, right frontoinsular, and bilateral basal ganglia/thalami, unchanged from prior. There is associated asymmetric exvacuodilatation of the right lateral ventricle. No acute infarcts are identified. The morel-white matter differentiation otherwise appears normal. Periventricular white matter hypoattenuation is a nonspecific finding that may be indicative of chronic small vessel ischemic disease. There is atherosclerotic calcification of the carotid siphons. Other than mild paranasal sinus disease, the visualized portions of the orbits, paranasal sinuses, and mastoids appear normal. No acute calvarial fracture is identified. Procedure Note Jovon Ramirez MD - 04/18/2025 PROCEDURE: CT HEAD WO CONTRAST, DATE/TIME OF EXAM: 04/17/2025 11:31PM, LOCATION [facility] INDICATION: R13.10: Dysphagia, unspecified type ADDITIONAL CLINICAL INFORMATION: Ordering Provider Reason For Exam: eval for cause of dysphagia; has hxof prior strokes Technologist Note: Additional: TECHNIQUE: CT of the head was performed without contrast according to standard protocol. COMPARISON: No prior study is available for comparison at the time ofthis dictation. FINDINGS: No acute intracranial hemorrhage or intra- or extra-axial fluidcollections are identified. There is mild cerebral volume loss with associated exvacuo ventricular dilatation. The basal cisterns are patent. No mass effect or midline shift is seen. Chronic infarcts in the bilateral occipitallobes, right frontoinsular, and bilateral basal ganglia/thalami, unchanged from prior. There is associated asymmetric exvacuodilatation of the right lateral ventricle. No acute infarcts are identified. The morel-whitematter differentiation otherwise appears normal. Periventricular white matter hypoattenuation is a nonspecific findingthat may be indicative of chronic small vessel ischemic disease. There is atherosclerotic calcification of the carotid siphons. Other than mild paranasal sinus disease, the visualized portions of the orbits, paranasal sinuses, and mastoids appear normal. No acute calvarial fracture is identified. IMPRESSION: 1.No acute intracranial hemorrhage, territorial infarct, or herniation. 2.Chronic infarcts and small vessel ischemic disease as detailed above. > Dictated by Naomi Hogan MD, (radiology asst). > Dictated by Naomi Hogan MD 04/17/2025 11:34 PM > Dictated by Spares Scheduler I, Jovon Ramirez MD have personally reviewed and interpreted this examination/study. > Interpreting Provider: Jovon Ramirez MD on 04/18/2025 12:19 AM us Dusty Hickey MD CT ORDERABLES Final Result * SARS-COV-2 (COVID-19) RAPID (04/17/2025 7:21 PM CLINICAL RESEARCH NURSE COORDINATOR) COVID-19 PCR Not detected Not detected 04/17/20 8:06 PM CLINICAL RESEARCH NURSE COORDINATOR [facility] Microbiology SPECIMEN FROM NASOPHARYNGEAL STRUCTURE / Unknown Collection / Unknown 04/17/2025 7:21 PM CLINICAL RESEARCH NURSE COORDINATOR 04/17/2025 7:30 PM CLINICAL RESEARCH NURSE COORDINATOR Narrative [facility] - 04/17/2025 8:06 PM CLINICAL RESEARCH NURSE COORDINATOR The Cepheid Xpert Xpress SARS-COV-2 has been authorized by the Food and Drug Administration (FDA) under an Emergency Use Authorization (EUA). This test has been validated in accordance with the FDA's guidance document Policy for Diagnostic Testing in Laboratories Certified to perform High Complexity Testing under CLIA prior to Emergency Use Authorization for Coronavirus Disease-2019 during the Public Health Emergency issued on August 04, 2019. FDA independent review of this validation is pending. This test is only authorized for the duration of the time the declaration that circumstances exist justifying the authorization of emergency use of in vitro diagnostic tests for detection of SARS-COV-2 virus and/or diagnosis of COVID-19 infection under 564(b) (1) of the Act. 21 U.S.C. 360bbb-3 (b) (1), unless the authorization is terminated or revoked sooner. Fact Sheets for this EUA assay are available upon request. us Lex Deleon MD LAB - MICROBIOLOGY ORDERABLE S Final Result [address] [address], [facility] [phone] * XR CHEST 2VW (04/17/2025 5:15 PM CLINICAL RESEARCH NURSE COORDINATOR) Anatomical Region Laterality Modality Chest Digital Radiogra phy 04/17/2025 5:45 PM CLINICAL RESEARCH NURSE COORDINATOR Narrative 04/18/2025 2:04 AM CLINICAL RESEARCH NURSE COORDINATOR PROCEDURE: XR CHEST 2VW, DATE/TIME OF EXAM: 04/17/2025 5:17 PM, LOCATION [facility] INDICATION: N17.9: RICK (acute kidney injury) ADDITIONAL CLINICAL INFORMATION: Ordering Provider Reason For Exam: r/o pneumonia Technologist Note: Additional: COMPARISON: 08/02/2023 FINDINGS/IMPRESSION: There are 2 cardiac devices overlying the left chest wall. There is no focal consolidation, pleural effusion, or pneumothorax.Normal pulmonary vasculature.The cardiomediastinal silhouette is normal. > Dictated by Lee Duff MD, (radiology asst). > Dictated by Lee Duff MD 04/17/2025 5:45 PM > Dictated by Spares Scheduler I, Dale Gavin MD have personally reviewed and interpreted this examination/study. > Interpreting Provider: Dale Gavin MD on 04/18/2025 2:04 AM Procedure Note Dale Gavin MD - 04/18/2025 PROCEDURE: XR CHEST 2VW, DATE/TIME OF EXAM: 04/17/2025 5:17 PM, LOCATION [facility] INDICATION: N17.9: RICK (acute kidney injury) ADDITIONAL CLINICAL INFORMATION: Ordering Provider Reason For Exam: r/o pneumonia Technologist Note: Additional: COMPARISON: 08/02/2023 FINDINGS/IMPRESSION: There are 2 cardiac devices overlying the left chest wall. There is no focal consolidation, pleural effusion, orpneumothorax.Normal pulmonary vasculature.The cardiomediastinal silhouette is normal. > Dictated by Lee Duff MD, (radiology asst). > Dictated by Lee Duff MD 04/17/2025 5:45 PM > Dictated by Spares Scheduler I, Dale Gavin MD have personally reviewed and interpreted this examination/study. > Interpreting Provider: Dale Gavin MD on 04/18/2025 2:04 AM Anton Gu MD DIAGNOSTIC IMAGING ORDERABLES Fi nal Result * (ABNORMAL) CBC W AUTO DIFFERENTIAL (04/17/2025 4:21 PM CLINICAL RESEARCH NURSE COORDINATOR) WBC 5.5 4.0 - 10.7 x10E9/L 04/17/2025 4:41 PM [facility] RBC Count 4.31 4.30 - 5.80 x10E12/L 04/17/2025 4:41 PM [facility] Hemoglobin 12.2(L) 13.3 - 17.5 g/dL 04/17/2025 4:41 PM [facility] Hematocrit 37.4(L) 38.7 - 51.1 % 04/17/2025 4:41 PM [facility] MCV 86.8 80.0 - 98.0 fL 04/17/2025 4:41 PM [facility] MCH 28.3 26.7 - 33.6 pg 04/17/2025 4:41 PM [facility] MCHC 32.6 31.7 - 36.3 g/dL 04/17/2025 4:41 PM [facility] RDW-CV 14.0 11.3 - 14.8 % 04/17/2025 4:41 PM [facility] Platelet Count 159 150 - 420 x10E9/L 04/17/2025 4:41 PM [facility] MPV 9.2 7.8 - 11.4 fL 04/17/2025 4:41 PM [facility] Neutrophil % 72.6 41.0 - 74.0 % 04/17/2025 4:41 PM [facility] Lymphocyte % 20.6 17.0 - 47.0 % 04/17/2025 4:41 PM [facility] Monocyte % 5.3 3.0 - 11.0 % 04/17/2025 4:41 PM [facility] Eosinophil % 0.6 0.0 - 7.0 % 04/17/2025 4:41 PM [facility] Basophil % 0.7 0.0 - 1.6 % 04/17/2025 4:41 PM [facility] Immature Granulocytes % 0.2 0.0 - 1.0 % 04/17/2025 4:41 PM [facility] Neutrophil Absolute 3.96 1.60 - 7.50 x10E9/L 04/17/2025 4:41 PM [facility] Lymphocyte Absolute 1.12 1.00 - 4.40 x10E9/L 04/17/2025 4:41 PM [facility] Monocyte Absolute 0.29 0.15 - 1.00 x10E9/L 04/17/2025 4:41 PM [facility] Eosinophil Absolute 0.03 0.00 - 0.60 x10E9/L 04/17/2025 4:41 PM [facility] Basophil Absolute 0.04 0.00 - 0.13 x10E9/L 04/17/2025 4:41 PM [facility] Blood BLOOD SPECIMEN / Unknown Venipuncture / Unknown 04/17/2025 4:21 PM CLINICAL RESEARCH NURSE COORDINATOR 04/17/2025 4:31 PM CLINICAL RESEARCH NURSE COORDINATOR Anton Gu MD LAB - HEMATOLOGY ORDERABLES Kristin l Result [facility] [address] [place] [address], [place] [phone] * CK BLOOD (04/17/2025 4:21 PM CLINICAL RESEARCH NURSE COORDINATOR) CK Total 75 30 - 200 U/L 04/17/2025 4:58 PM CLINICAL RESEARCH NURSE COORDINATOR [facility] Blood BLOOD SPECIMEN / Unknown Venipuncture / Unknown 04/17/2025 4:21 PM CLINICAL RESEARCH NURSE COORDINATOR 04/17/2025 4:31 PM CLINICAL RESEARCH NURSE COORDINATOR Anton Gu MD LAB - CHEMISTRY ORDERABLES Final Result Performing Organization Address City/[facility]/ZIP Co de Phone Number [address] [address], [place] [phone] from Last 3 [place] [id number] Advance Directives Documents on File Type Date Recorded Patient Driver Retraining Instructor Expl anation Adv Directive/Living Will/POA 08/11/2023 12:31 PM * NO CPR(DNR) OK TO INTUBATE (Latest Code Status on File) Date Activated Date Inactivated Comments 04/17/2025 7:58 PM 04/19/2025 2:57 PM * Full Code Date Activated Date Inactivated Comments 08/02/2023 5:09 AM 08/04/2023 7:22 PM * Full Code Date Activated Date Inactivated Comments 06/15/2020 8:36 PM 06/18/2020 8:17 PM Healthcare Agents on File Name Relationship Healthcare Agent Relationshi p Communication Anjel Rodrigue Brother Power of Director Stars (POA) Care Teams Device Processing Engineer Relationship Specialty Start Date End Date Bruce Mason DO [address] [place] [address] PCP - General Internal Medicine 06/27/24 Arianna Nichole MD [address] OF [facility] [place] [address] Physician Internal Medicine 04/10/24
--- OUTSIDE RECORDS SUMMARY | 2025-06-03 14:34 | XMS_ITS | Encounter Summary ---
Author Organization [facility] Address [address] [place] [address] Care Team Providers Care Tilt Wall Supervisor Name Role Phone Arianna Nichole MD Unavailable Bruce Mason DO Primary Care Provider [phone] Encounter Details Date Type Department Care Team (Late st Contact Info) Description 05/06/2025 Results Follow-Up [facility] - Pulmonology [address] [place] [address], [place] [address] Tereza Gooden MD [address] [place] [address] [address] DIV OF PULMONARY/CR[place] [address] Social History Tobacco Use Types Packs/Day Years [...] and heating? Not hard at all 04/17/2025 [facility] of Occupat ional Health - Occupational Stress [...] any time in the past 12 m [facility], were you homeless or living in a senior living (including now)? No 04/17/2025 Sex and Gender Information Value Date Recorded Sex Assigned at Not on file Legal Sex Male 5:42 PM COLOR DIPPER Gender Identity Not on file Sexual Orientation Not on file documented as of this encounter Functional Status * Is person deaf or have serious hearing difficulty? Answer Date of Assessment Author No 04/17/2025 9:52 PM Hannah Buitrago RN * Is person blind or have serious difficulty seeing? Answer Date of Assessment Author No 04/17/2025 9:52 PM Hannah Buitrago RN * Does person have serious difficulty walking/climbing stairs? Answer Date of Assessment Author No 04/17/2025 9:52 PM Hannah Buitrago RN * Does person have difficulty dressing/bathing? Answer Date of Assessment Author No 04/17/2025 9:52 PM COLOR DIPPER Hannah Figueroa RN * Does person have difficulty doing errands alone? Answer Date of Assessment Author Yes 04/17/2025 9:52 PM Hannah Buitrago RN documented as of this encounter Mental Status * Does person have difficulty concentrating/remembering/making decisions? Answer Entry Date Author Yes 04/17/2025 9:52 PM Hannah Buitrago RN documented in this encounter Plan of Treatment Upcoming Encounters Date Type Department Care Team (Late st Contact Info) Description 07/03/2025 8:30 AM COLOR DIPPER Office Visit [facility] - Pulmonology [address], [facility] [address] [place] [phone] Tereza Gooden MD [address] OF PULMONARY/[place]ICAL [place] [phone] 07/04/2025 2:15 AM COLOR DIPPER Clinical Support [facility] - Cardiology [address] [facility], [facility] [address] [place] [phone] 08/01/2025 11:30 AM COLOR DIPPER Office Visit [facility] - General Dermatology [address], [facility] [address] [place] [phone] Rich Mehta PAIvan [address] [facility] [address] [place] [phone] 08/08/2025 4:00 AM COLOR DIPPER Clinical Support [facility] - Cardiology [address] [facility], [facility] [address] [place] [address] 09/05/2025 9:00 AM CDT Office Visit [facility] - Neurology [address] [facility], [place] [address] Brisa Blanchard PA-C [address] [place] [address] 09/12/2025 4:00 AM CDT Clinical Support [facility] - Cardiology [address], [address] [address] 10/17/2025 4:00 AM CDT Clinical Support [facility] - Cardiology [address], [address] [address] 11/21/2025 4:00 AM CDT Clinical Support [facility] - Cardiology [address], [address] [address] 12/26/2025 3:15 AM CDT Clinical Support [facility] - Cardiology [address], [address] [address] documented as of this encounter Visit Diagnoses Not on filedocumented in this encounter Care Teams Tilt Wall Supervisor Relationship Specialty Start Date End Date Bruce Mason DO [address] [place] [phone] PCP - General Internal Medicine 06/27/24 Arianna Nichole MD [address] OF GEN INTERNAL [place] [address] Physician Internal Medicine 04/10/24 documented as of this encounter
--- OUTSIDE RECORDS SUMMARY | 2025-06-03 14:34 | XMS_ITS | Encounter Summary ---
Author Organization [facility] Address [address] [place] [address] Care Team Providers Care Glaucoma Specialist Name Role Phone Arianna Nichole MD Unavailable Bruce Mason DO Primary Care Provider [phone] Encounter Details Date Type Department Care Team (Late st Contact Info) Description 09/12/2024 Telephone [facility] - Dermatology [address] [place] [address], [facility] [place] [id number] Baldev Feliciano MD [address] [place] [address] [address] [facility] [place], [place] [id number] Social History Tobacco Use Types Packs/Day Years [...] on file Legal Sex Male 5:42 PM NIGHT GUARD Gender Identity Not on file Sexual Orientation Not on file documented as of this encounter Functional Status * Is person deaf or have serious hearing difficulty? Answer Date of Assessment Author No 06/18/2020 4:38 PM Sa terri Ryan APRN-CNP * Is person blind or have serious difficulty seeing? Answer Date of Assessment Author No 06/18/2020 4:38 PM NIGHT GUARD Sa terri Silva APRN-JAMESON * Does person have serious difficulty walking/climbing stairs? Answer Date of Assessment Author No 06/18/2020 4:38 PM NIGHT GUARD Sa terri Silva, TRENCH DIGGING MACHINE OPERATOR-JAMESON * Does person have difficulty dressing/bathing? Answer Date of Assessment Author No 06/18/2020 4:38 PM NIGHT GUARD Sa terri Silva, TRENCH DIGGING MACHINE OPERATOR-THERAPY ADMINISTRATIVE ASSISTANT * Does person have difficulty doing errands alone? Answer Date of Assessment Author Yes 06/18/2020 4:38 PM Sa terri Ryan APRN-JAMESON documented as of this encounter Mental Status * Does person have difficulty concentrating/remembering/making decisions? Answer Entry Date Author Yes 06/18/2020 4:38 PM Sa terri Ryan APRN-JAMESON documented in this encounter Progress Notes * Mirna Neves - 09/20/2024 1:33 PM CDT Medication Prior Authorization: Medication: Otezla starter pack and Otezla 30mg tablet Status: Approved 09/12/24 through 03/14/25 Submitted via: Cover My Meds (Nation: [id number]) Insurance: [employer] (p: [phone]) (f: [phone]) Case/Reference number: ID: [id number] RX Card Billing Info: BIN: [id number] PCN: [id number] GROUP: COS ID: [id number] PARISH approval notice uploaded to media tab. Routed approval details to [facility] and will have home health care case manager reach out to patient as well. Mirna Neves- Pharmacy Melter Loader (Dermatology) documented in this encounter Miscellaneous Notes * Telephone Encounter - Carla Panda - 09/17/2024 1:17 PM CDT Fax provider form and insurance cardsd to [employer] I do not have a copy of the approval of the medication to fax with the form. Called brother advised will send patient signature form thru pt mychart advised him to please fax form once signed to the fax number on the bottom. Carla Panda * Telephone Encounter - Mirna Neves - 09/12/2024 12:23 PM CDT PARISH submitted fornew start Otezlastarter pack and 30mg tablet for loading dose of (starter: utd) andmaintenance dose of (30mg bid) via [employer] Part Dand currently waiting on decision. Nation: [id number] Provider:[id number] (Braden) Mirna Neves Steam Fitter Supervisor Maintenance - Pharmacy Melter Loader documented in this encounter Plan of Treatment Upcoming Encounters Date Type Department Care Team (Late st Contact Info) Description 07/03/2025 8:30 AM NIGHT GUARD Office [facility] [address], [facility] [address] [place] [phone] Tereza Gooden MD [address] [facility] 2L DIV OF PULMONARY/[place] [phone] 07/04/2025 2:15 AM NIGHT GUARD [facility] [address] [facility], [facility] [address] [place] [phone] 08/01/2025 11:30 AM NIGHT GUARD Office [facility] General Dermatology [address], [facility] [address] [place] [phone] Rich Mehta PA-C [address] [facility] [address] [place] [address] 08/08/2025 4:00 AM NIGHT GUARD Clinical Support [facility] - Cardiology [address] [facility], [facility] [address] [place] [phone] 09/05/2025 9:00 AM CDT Office Visit [facility] - Neurology [address] [facility] [place] [address] Brisa Blanchard PA-C [address] [place] [address] 09/12/2025 4:00 AM CDT Clinical Support [facility] - Cardiology [address], [address] [address] 10/17/2025 4:00 AM CDT Clinical Support [facility] - Cardiology [address], [address] [phone] 11/21/2025 4:00 AM CDT Clinical Support [facility] - Cardiology [address] [address] 12/26/2025 3:15 AM CDT Clinical Support [facility] - Cardiology [address], [address] [address] documented as of this encounter Visit Diagnoses Not on filedocumented in this encounter Additional Health Concerns Infection Onset Date Last Indicated Resolved Time COVID-19 Under Investigation 04/17/2025 04/17/2025 04/17/2025 8:06 PM NIGHT GUARD documented as of this encounter Care Teams Glaucoma Specialist Relationship Specialty Start Date End Date Bruce Mason DO [address] [place] [phone] PCP - General Internal Medicine 06/27/24 Arianna Nichole MD [facility] [facility] 2L DIV [place] [address] Physician Internal Medicine 04/10/24 documented as of this encounter
[2025-06-03 19:06] LABS: Hematocrit 40.8 % (42.0-52.0); Hemoglobin 13.1 g/dL (14.0-18.0); Immature Granulocyte Percent A 0.4 % (0-0.5); Lymphocytes Absolute Auto 1.16 K/mm3 (0.9-3.2); Mean Corpuscular HGB Conc 32.1 g/dl (32-36); Mean Corpuscular Hemoglobin 28.6 pg (26-34); Mean Corpuscular Volume 89.1 fl (80-100); Nucleated Red Blood Cells Absolute Auto 0.000 K/mm3 (0.0-0.012); Nucleated Red Blood Cells Perc 0.0 % (0.0-0.2); Platelet Count Result 214 k/mm3 (150-375); Red Blood Count 4.58 M/mm3 (4.6-6.20); White Blood Count 7.4 K/mm3 (4.5-10.0)
[2025-06-03 19:13] LABS: Hemoglobin A1C 5.1 % (<5.7)
[2025-06-03 19:22] LABS: Alanine Aminotransferase 17 U/L (6-50); Albumin Level 4.1 g/dL (3.5-5.1); Alkaline Phosphatase 90 U/L (38-126); Anion Gap 7 mmol/L (4-12); Aspartate Amino Transferase 35 U/L (17-59); Bilirubin,Total 0.9 mg/dL (0.2-1.3); Calcium 9.4 mg/dL (8.4-10.2); Carbon Dioxide 28 mmol/L (22-30); Chloride 104 mmol/L (98-107); Glucose 84 mg/dL (65-110); Sodium 139 mmol/L (137-145); Total Protein 6.9 g/dL (6.3-8.2)
[2025-06-03 19:34] LABS: Blood Urea Nitrogen 28 mg/dL (9-20); Estimated Glomerular Filt Rate > 60
[2025-06-03 19:40] LABS: Free T3 2.91 pg/mL (2.71-6.16); Free T4 Free Thyroxine 0.93 ng/dL (0.78-2.19)
[2025-06-03 19:58] LABS: Thyroid Stimulating Hormone 1.000 uIU/mL (0.465-4.680)
[2025-06-03 20:12] LABS: Potassium 4.7 mmol/L (3.4-5.0)
[2025-06-03 20:33] LABS: Vitamin B12 311.0 pg/mL (239-931)
== END 2025-06-03 14:19 | disposition home or self-care (01) ==
PROVIDERS: PCP Internal Medicine; Visit Provider Internal Medicine
DX: G40.909 Epilepsy, unspecified, not intractable, without status epilepticus (principal); J40 Bronchitis, not specified as acute or chronic; E11.9 Type 2 diabetes mellitus without complications; E44.1 Mild protein-calorie malnutrition; Z86.73 Personal history of transient ischemic attack (TIA), and cerebral infarction without residual deficits; Z72.0 Tobacco use
CPT/HCPCS: 36415; 80053; 82306; 82607; 82746; 83036; 84439; 84443; 84481; 85025; 85652

== ENCOUNTER 2025-06-03 14:37 | Outpatient (CLI) | payer MEDICARE, SELFPAY ==
--- NOTE | ~2025-06-03 | XR_ITS ---
EXAMINATION: XR chest 2V 06/03/2025 15:16 INDICATION: Bronchitis PROCEDURE: 2 view chest COMPARISON: 04/15/2025 FINDINGS: The lungs are clear. The cardiomediastinal silhouette is within normal limits. There are no pleural effusions. There is no pneumothorax suspected. There are battery devices overlying the left chest wall. IMPRESSION: 1: NO ACUTE CARDIOPULMONARY DISEASE. Reviewed, dictated and finalized at location O. RAL LAB TECHNICIAN
== END 2025-06-03 14:38 | disposition home or self-care (01) ==
LOC: GOSHIMG 14:38
PROVIDERS: PCP Internal Medicine; Visit Provider Internal Medicine
DX: J40 Bronchitis, not specified as acute or chronic (principal)
CPT/HCPCS: 71046